=== PATIENT | female | born 1970 | race Caucasian/White ===

== ENCOUNTER → 2016-08-27 | Outpatient (CLI) | payer OTHER ==
[~2016-08-27] MED LIST: EPP3/2 IM; MULT-513 PO; PRO AIR INH
--- NOTE | 2016-08-28 05:53 | PAP/PSG TECHNICIAN REPORT ---
[facility] Portrait Painter Polysomnogram Report Study name: None Report date: 08/28/2016 Study date: 08/27/2016 Referring Physician: Alfredito SLATER M.D. Name: GRETCHEN STROUD Interpreting Physician: Clau Slater M.D. Date of : 1970 Portrait Painter: Lauro Blank RPSGT. Sex: Female Age: 46 StudyType: PSG Weight: 208 lbs 14 inches Height: 46 years, Height 5' 4.4" Neck Circum: BMI: 35.26 Medications: ibuprofen 200 mg, proair hfa 108 90 base, epi-pen Patient History PATIENT HAS HISTORY OF LOUD SNORING, WITNESSED APNEAS, NOCTURIA AND HEADACHES. SHE ALSO HAS HISTORY OF DROWSY DRIVING. SHE IS HERE TODAY FOR AN EVALUATION OF SHEILA. ESS = 21 RM 8 Parameters Monitored NPSG: E1-M2, E2-M1, Fp1-M2, Fp2-M1, F3-M2, F4-M2, F4-M1, C3-M2, C4-M2, C4-M1, O1-M2, O2-M2, O2-M1, T3-M2, T4-M1, P3-M2, P4-M1, CHIN1, CHIN2, HR, EKG, Legs, PFLOW, SNOR, FLOW, CFLOW, Tidal Volume, THOR, ABDO, SpO2, PLTH, CPRESS, ETCO2 Wave, ETCO2, pH Sleep Architecture Sleep Stages Time at Lights Off 10:25:08 PM STAGES Time (min.) TST (%) Time at Lights On 5:32:08 AM Wake 67.5 -- Total Recording Time (TRT) 427.50 min. N1 12.5 3 Total Sleep Period (TSP) 396.0 min. N2 190.5 53 Total Sleep Time (TST) 359.5min. N3 60.5 17 Awake Time 68.0 min. REM 96.0 27 Wake after Sleep Onset 39.0 min. Sleep Efficiency (SE) 84 % Sleep Onset Latency (DAMARI) 28.5 min. Number of Stage 1 Shifts None Awakenings 16 Stage Changes 55 Number of REM periods 3 REM 96.0 27 REM Latency 166.0 min. NREM 263.5 73 Body Position Analysis Supine Right Left Side Prone Vertical Total Sleep Time (min.) 34.3 165.6 192.0 357.55 0.0 0.0 Total Sleep Time (%) 1% 46% 53% 99 0% N/A% Total Sleep Time REM (min.) 0.0 35.0 61.0 None 0.0 0.0 Total Sleep Time NREM (min.) 1.9 130.6 131.0 None 0.0 0.0 Intermittent Wake (min.) 32.3 19.6 15.6 None 0.0 0.0 Total Sleep Period (%) 3% None None None None None Arousals Myoclonus (PLM) * Events Count Index Events Count Index Spontaneous 11 2 Events Awake (PLMW) 44 39.1 Respiratory 2 0.3 Events Asleep w/ Arousal (PLMA) 1 0.2 PLM 1 0 Events Asleep w/o Arousal (PLMS) 1 0.2 Snoring 1 0 Total Asleep 2 0.3 Total 15 3 Total 46 6 Respiratory Analysis * CA OA MA CH H RERA Total Count 0 5 0 0 30 1 35 Index 0.0 0.8 0.0 0 5.0 0 6.0 Mean Duration 0.0 12.8 0.0 0.00 19.8 19.3 18.8 Longest Duration 0.0 15.8 0.0 0.00 0.0 19.3 35.4 Respiratory Event Summary Total Supine ~Supine Right Left Prone REM NREM Apneas Count 5 0 5 3 2 N/A 5 0 Index 0.8 0 1 1.1 0.6 N/A 3 0 Hypopneas (4% Desat) Count 30 0 30 12 18 N/A 27 3 Index 5.0 0.0 5 4.3 5.6 N/A 16.9 0.7 Apneas & All Hypopneas Count 35 0 35 15 20 N/A 32 3 Index 5.8 0 6 5 6 N/A 20.0 0.7 Respiratory Events ([employer] Programmer+All Hyp+RERA) Count 35 0 36 16 20 N/A 32 3 Index 6.0 0 6 5.8 6.3 N/A 20.6 0.7 Respiratory Related Arousal Count 2 0 2 1 1 N/A 1 1 Index 0.3 0 0 0 0 N/A 1 0 Snoring Analysis Supine Right Left Prone REM NREM Total Snore duration 30.4 min Snores count 1 579 609 N/A 471 718 1,189 Snore mean duration 1.5 Sec Snores index 31 210 190 N/A 294.4 163.5 198.4 TST with snoring (%) 8.5% Desaturation Event Summary: Minimum %SpO2 Event Count Mean/Min/Max Duration(sec.) Desaturation Index % Time In Bed > 90 33 29.8 / 8.8 / 60.0 4.7 98.0 86 - 90 0 N/A 0.0 2.0 81 - 85 0 N/A 0.0 0.1 76 - 80 0 N/A 0.0 0.0 71 - 75 0 N/A 0.0 0.0 66 - 70 0 N/A 0.0 0.0 61 - 65 0 N/A 0.0 0.0 56 - 60 0 N/A 0.0 0.0 51 - 55 0 N/A 0.0 0.0 < 50 0 N/A 0.0 0.0 Total REM NREM Awake <50% 0.0 min. 0.0 min. 0.0 min. 0.0 min. 51 - 60% 0.0 min. 0.0 min. 0.0 min. 0.0 min. 61 - 70% 0.0 min. 0.0 min. 0.0 min. 0.0 min. 71 - 80% 0.0 min. 0.0 min. 0.0 min. 0.0 min. 81 - 90% 8.7 min. 6.7 min. 1.5 min. 0.5 min. 91 - 100% 418.1 min. 89.3 min. 262.0 min. 66.8 min. Average 93 93 93 94 Minimum SpO2 84 84 89 90 Desaturation Event Index 4.6 18.1 0.7 0.9 # Desat. Events below 89% 7 7 N/A N/A Time(%) with Saturation below 89% 0.3 0.3 0.0 0.0 Time(min.) with Saturation below 89% 1.5 1.5 0.0 0.0 Time (mins) REM (mins) NREM (mins) % of TST SpO2 Below 90% 20 18 N2 0.9 SpO2 Below 88% 3 0 0 0 Heart Rate Analysis Min (bpm) Max (bpm) Average (bpm) Awake 56 127 70 NREM 55 89 65 REM 54 92 69 Overall 54 92 66 Supplemental O2 Values Minimum O2 level: None Value Start Time End Time Portrait Painter Comments Ms. Stroud slept in the right, left and supine positions. PAC's noted. Leg movements noted. No bruxism noted. Snoring was noted and scored as a 4 on a scale of 1 through 5. (0=no snoring, 5=snoring loud enough to be heard through a closed door or down the horan way) Ms. Stroud awoke to use the restroom 0 times during the night. Ms. Stroud stated I slept as well as I do when I am in my own bed. The final report will be interpreted and signed by a sleep physician. The completed physician report will then be placed in the patient medical record. Therapy (cm H2O) 0 TIB (min.) 427.0 TST (min.) 359.5 Sleep Onset (min.) 28.5 REM Onset From Sleep (min.) 166.0 Sleep Efficiency % 84 Wakefulness (%) 16 Wakefulness (min.) 68.0 NREM 1 (%) 3 NREM 1 (min.) 12.5 NREM 2 (%) 53 NREM 2 (min.) 190.5 NREM 3 (%) 17 NREM 3 (min.) 60.5 REM (%) 27 REM (min.) 96.0 # Arousals 15 Arousal Index 3 # Snore 1,189 Snore Index 198.4 AHI 5.8 AHI Supine 0 AHI Non-Supine 6 NREM AHI 0.7 REM AHI 20.0 RDI 6.0 # Obstructive Apnea 5 # Central Apnea 0 # Mixed Apnea 0 # Hypopneas 30 RERAs 1 Total Respiratory Events 36 Time Below SpO2 89% (min.) 1.5 Mean NREM SpO2 (%) 93 Mean REM SpO2 (%) 93 Mean Sleep SpO2 (%) 93 Min NREM SpO2 (%) 89 Min REM SpO2 (%) 84 Position Supine (min.) 34.3 Position Non-supine (min.) 357.6 LM Index Sleep 0.3 LM Index NREM 0.5 LM Index REM 0.0 Mean Heart Rate (bpm) 66 Min Heart Rate (bpm) 54
--- NOTE | 2016-09-07 15:58 | POLYSOMNOGRAPH REPORT ---
REFERRING PERSON: Dr. Clau Slater. SENIOR ACCOUNTANT: Lauro Blank. Ms. Moreno is a 46-year-old female with a history of loud snoring, witnessed apneas, nocturia and headache. She does admit to drowsy driving. She is here to rule out sleep disorder breathing. Her [place] Sleepiness Scale Score on the evening of this study is 21, BMI is 35.26. Following the technical and digital specifications of the [place] [employer] (AASM) a standard diagnostic polysomnogram was performed monitoring EEG, EOG, EMG (chin and leg deviations), oxygen saturation, body position, digital video, respiratory effort and airflow. The sleep Stage and event scoring was based on the AASM Manual for the Scoring of Sleep and Associated Events 2007 edition. Apneas are defined as a drop in the peak thermal sensor excursion by >90% of baseline for at least 10 seconds. Hypopneas were scored using the 4% oxygen desaturation rule (4A-[employer]ic[employer]) and a decrease in the nasal pressure excursions by >30% of baseline for at least 10 seconds. Respiratory effort-related arousal (RERA's) is defined as a sequence of breaths lasting at least 10 seconds characterized by increasing respiratory effort or flattening of the nasal pressure waveform leading to an arousal from sleep when the sequence of breaths does not meet criteria for an apnea or hypopnea. Apnea Hypopnea index (AHI) is defined as the number of apneas and hypopneas occurring in an hour of sleep. Respiratory disturbance index (RDI) is defined as the number of apneas, hypopneas, and RERA's occurring in an hour of sleep. Ms. Moreno's total sleep period time was 396 minutes. Total sleep time was 359.5 minutes. Sleep efficiency was 84%. Latency to sleep onset was 28.5 minutes with wake after sleep onset at 39 minutes. Total non-REM sleep time was 263.5 minutes. He spent 3% of that time in N1 sleep, 53% in N2 sleep and 17% in N3 sleep. REM latency was 166 minutes. Total REM sleep time was 96 minutes or 27% of total sleep time. There were 15 cortical arousals from sleep. Eleven of these arousals were spontaneous, 2 were due to respiratory events, 1 due to periodic limb movements of sleep and 1 was due to snoring. There were 2 periodic limb movements noted on this test. Limb movement index was 0.3. Limb movement with arousal index was 0.2. There were 5 obstructive apneas, no central or mixed apneas and 30 hypopnea noted on this test. Apnea-hypopnea index was 5.8 consistent with mild sleep apnea. REM AHI was 20. 1,189 snoring events were recorded. Total sleep time with snoring was 8.5%. Mean saturation was 93% with desaturations to 84%. Saturations were less than 89% for 1.5 minutes of recording time. There were some premature atrial complexes noted on EKG monitoring. Heart rates ranged from a low of 54 beats per minute to a high of 92 beats per minute. IMPRESSION AND PLAN: A 46-year-old female with evidence of mild sleep apnea without nocturnal hypoxemia on this sleep study. Overall, AHI was 5.8 with a REM AHI of 20. 1. This patient may benefit from positive airway pressure therapy. She should return to sleep lab for a full night titration and then based on those results be started on equipment at home. A download from her machine can be reviewed in 1 month both to check compliance as well as AHI and further pressure adjustments can occur at that time. 2. Alternatively, this patient could be started on auto titrating CPAP with pressures of 5-15 cm. A download reviewed 1 month after starting therapy and then this patient could be set to optimal pressure based on that data. 3. Should this patient be unwilling or unable to tolerate CPAP therapy, she may be referred to ear, nose and throat or oral surgery/dental medicine (if appropriate) to discuss alternative treatments for sleep disordered breathing.
== END | disposition home or self-care (01) ==
LOC: C.NEUR 21:00
PROVIDERS: ATTEND Family Medicine
DX: G47.10 Hypersomnia, unspecified (principal); R06.83 Snoring

== ENCOUNTER 2017-04-25 10:31 | Emergency (ER) | payer OTHER ==
[~2017-04-25] VITALS: Ht 160 cm; Wt 97.1 kg
[2017-04-25 10:42] VITALS: TEMP 36.6; Ht 160 cm; Wt 97.1 kg
[2017-04-25] MEDS ORDERED: ALBU18002 INH (11:18)
[2017-04-25] MEDS ORDERED: MONT1TAB3 PO (11:18)
[2017-04-25] MEDS ORDERED: ASPI-391 PO (11:18)
[2017-04-25 11:40] LABS: HEMATOCRIT 41.2 % (37-47); MEAN CELL VOLUME 87.5 fL (80-100); MEAN CORPUSCULAR HEMOGLOBIN 30.8 pg (25-34); MEAN CORPUSCULAR HGB CONC 35.2 g/dl (32-36); PLATELET COUNT 376 K/uL (130-400); RED BLOOD COUNT 4.71 M/uL (4.2-5.4); WHITE BLOOD COUNT 9.08 K/uL (4.8-10.8)
[2017-04-25] MEDS ORDERED: CIPROFLOXACIN 400MG / 200ML D5W IV STA (11:43)
[2017-04-25 11:48] LABS: URINE APPEARANCE CLEAR (CLEAR); URINE BILIRUBIN NEG (NEG); URINE COLOR YELLOW; URINE EPITHELIAL CELL AUTO >30 /lpf (0-5); URINE NITRITE NEG (NEG); URINE PH 6.5 (4.5-7.5); URINE SPECIFIC GRAVITY 1.013 (1.000-1.030); UROBILINOGEN NEG (NEG); ZZUR CULT IF INDIC CLEAN CATCH YES
[2017-04-25 11:48] LABS: BUN/CREATININE RATIO 13.6 (10-20); CALCIUM 9.6 mg/dl (8.5-10.1); CREATININE 0.89 mg/dl (0.60-1.20); POTASSIUM 3.6 mmol/L (3.5-5.1)
[2017-04-25 11:58] LABS: MANUAL MICROSCOPIC REQUIRED? NO; REVIEW REQ? YES
[2017-04-25] MEDS ORDERED: CEFTRIAXONE SOD INJ 1 GM ADDVIAL IV STA (12:00)
[2017-04-25] MEDS ORDERED: LOSARTAN POTASSIUM 50 MG TAB PO STA (12:25)
[2017-04-25 12:28] LABS: ALKALINE PHOSPHATASE 87 U/L (45-117); ALT/SGPT 42 U/L (12-78); AST/SGOT 21 U/L (15-37)
--- NOTE | 2017-04-25 12:35 | DIAGNOSTIC IMAGING REPORT ---
HEAD WITHOUT CONTRAST (CT) CLINICAL HISTORY: 46 years-old Female presenting with [place] eval for bleed. TECHNIQUE: Multidetector CT imaging of the head was performed without the use of intravenous contrast. IV contrast: None. A dose lowering technique was used consistent with the principles of ALARA (as low as reasonably achievable). COMPARISON: None. CT DOSE (mGy.cm): The estimated cumulative dose is 2200.[address] abdomen and pelvis. FINDINGS: Saw Filer topogram: Unremarkable. Ventricles and sulci normal in size. Brain parenchyma normal in appearance with preserved glover-white differentiation. No mass effect or midline shift. No hemorrhage or acute territorial infarct. No extra-axial fluid collection. Paranasal sinuses and mastoid air cells clear. Calvarium intact. Postsurgical changes of the left globe. IMPRESSION: 1. No acute intracranial abnormality. Electronically signed by: Royer Barber M.D. 04/25/2017 12:34 PM Dictated Date/Time: 04/25/2017 12:32 PM
--- NOTE | 2017-04-25 12:45 | DIAGNOSTIC IMAGING REPORT ---
ABD/PELVIS WITHOUT FOR STONE CLINICAL HISTORY: 46 years-old Female presenting with flank pain eval for stone. TECHNIQUE: Multidetector CT of the abdomen and pelvis was performed without the use of intravenous contrast. IV contrast: None. A dose lowering technique was used consistent with the principles of ALARA (as low as reasonably achievable). COMPARISON: 04/10/2016. CT DOSE (mGy.cm): The estimated cumulative dose is 2200.07 mGy.cm. FINDINGS: Identification Printing Machine Setter topogram: Cholecystectomy clips. Lung bases: Minimal dependent changes likely atelectasis. Few pulmonary cyst noted at the lung bases. Mild mosaic attenuation. Heart top normal in size. No pericardial or pleural effusion. Liver: Normal morphology. Normal density. Biliary: Dilatation of the presumed cystic duct remnant with a 8 mm calculus at the junction of the cystic duct with the common hepatic duct. This appearance is unchanged from the prior exam though previously noted additional hyperdensities have cleared from the cystic duct remnant. Gallbladder surgically absent. Pancreas: Mild parenchymal atrophy. Spleen: Normal noncontrast appearance. Few small splenule is noted. Adrenal glands: Normal noncontrast appearance. Kidneys and ureters: Two exophytic soft tissue density lesions noted in the right kidney, incompletely characterized and the absence of intravenous contrast. No nephrolithiasis. No hydronephrosis. Normal ureters. Bladder: Mild circumferential bladder wall thickening allowing for underdistention. Pelvic organs: Uterus and ovaries normal. Nabothian cyst suggested in the cervix. Dominant follicle suggested in the right ovary. Evaluation limited bilateral contrast. Bowel: Normal appendix. No bowel obstruction. Diverticulosis of the proximal sigmoid colon. Peritoneal cavity: No free fluid or intraperitoneal gas. Lymph nodes: No gross lymphadenopathy allowing for noncontrast technique. Vasculature: Normal noncontrast appearance. Abdominal wall: Small fat-containing umbilical hernia. Musculoskeletal: Degenerative changes of the pubic symphysis. Few sclerotic lesions in the pelvis likely bone islands. Degenerative changes of the lower lumbar spine. IMPRESSION: 1. Circumferential bladder wall thickening could represent cystitis. Correlate with urinalysis. No hydronephrosis or nephrolithiasis. 2. Unchanged appearance of the 8 mm calculus presumably in the cystic duct remnant. No intrahepatic biliary ductal dilatation. 3. Indeterminate soft tissue density lesions in the right kidney. These could represent hemorrhagic or proteinaceous cysts although underlying soft tissue neoplasm cannot be excluded in the absence of intravenous contrast. Dedicated contrast enhanced CT or MR of the kidneys on a nonurgent basis to be considered as clinically indicated. 4. Diverticulosis. Electronically signed by: Royer Barber M.D. 04/25/2017 12:44 PM Dictated Date/Time: 04/25/2017 12:36 PM
[2017-04-25] MEDS ORDERED: SULF800T23 PO (13:04)
[2017-04-25 13:30] VITALS: BP 139/90; PULSE 58; O2SAT 98
--- NOTE | 2017-04-25 15:49 | EMERGENCY ROOM VISIT NOTE ---
History Report prepared by Daniel: Yumiko Garcia Under the Supervision of: Dr. Maximiliano Chris M.D. First contact with patient: 11:35 Chief Complaint: URINARY SYMPTOMS Stated Complaint: KIDNEY PAIN,HEADACHE,BODYACHES,FEVER Nursing Triage Summary: see triage Urinary symptoms since yesterday. History of Present Illness The patient is a 46 year old female who presents to the Emergency Room with complaints of persistent kidney pain starting 2200 last night. She describes the pain as a dull ache. It is worse on the left side. It does not radiate to the front. The pain worsens with urination. The patient was sent over from [place]. Her blood pressure was found to be high there. She notes that she has had borderline hypertension and was given a diuretic. She has not taken the diuretic as it was making her lightheaded. The patient started having urinary frequency and burning yesterday morning. Last night she started having fever and chills. Her temperature was 102.5 last night. She was unable to sleep well last night due to the pain. She notes a history of kidney infections. She has been waking up with headaches for the past month. She had a migraine today for which she took some migraine medication. She has had loose stools, but no diarrhea. She has had a mild cold recently. She denies any vomiting or chest pain. She denies any history of kidney stones. Source of History: patient Onset: 2199 last night Position: other (kidney) Quality: ache, dull Timing: other (persistent) Modifying Factors (Worsening): urination Associated Symptoms: + fevers, + chills, + headache, + urinary symptoms, No chest pain, No vomiting, No diarrhea Note: Pt reports loose stools, high blood pressure. Review of Systems See HPI for pertinent positives & negatives. A total of 10 systems reviewed and were otherwise negative. Past Medical & Surgical Medical Problems: (1) Abdominal pain (2) Asthma (3) Bronchitis (4) Dental cavity (5) Kidney infection (6) Migraine (7) Pneumonia (8) S/P cholecystectomy (9) UTI (urinary tract infection) Social History Problems: (1) Post-operative state Family History Diabetes mellitus FHx: gallbladder disease Heart disease Hypertension Kidney disease Kidney stones Seizures Social History Smoking Status: Never Smoker Alcohol Use: occasionally Drug Use: none Housing Status: lives with family Occupation Status: unemployed Current/Historical Medications Scheduled Epinephrine (Epipen), 0.3 MG IM UD Montelukast Sodium (Singulair), 10 MG PO DAILY Multivitamins/Minerals (Mvi With Minerals), 1 TAB PO QAM Sulfa/Trimethoprim (Bactrim Ds 800MG/160MG), 1 TAB PO BID Scheduled PRN Albuterol Sulfate (Proair Respiclick), 1 PUFF INH DAILY PRN for SOB/Wheezing Nmlfwqh-Mclwdhsloagqq-Dkxwojpk (Excedrin Extra Strength), 1 TAB PO Q4H PRN for Headache or Pain Allergies Coded Allergies: BEE STING (Unverified Allergy, Severe, ANAPHYLAXIS, 04/25/17) Wheat (Unverified Allergy, Intermediate, gi upset, 04/25/17) Latex1 -Allergic Contact Dermititis (Unverified Allergy, Mild, RASH, 04/25) PER PATIENT Cashew (Unverified Allergy, Unknown, throat closes, 04/25/17) [place] (Unverified Allergy, Unknown, throat closes, 04/25/17) Pistachio (Unverified Allergy, Unknown, throat closes, 04/25/17) Uncoded Allergies: UNKNOWN ANTIBIOTIC (Allergy, Unknown, hives & trouble breathing, 03/26/16) Physical Exam Vital Signs Date Time Temp Pulse Resp B/P (MAP) Pulse Ox O2 Delivery O2 Flow Rate FiO2 04/25/17 13:30 58 16 139/90 98 Room Air 04/25/17 12:40 57 20 148/79 99 Room Air 04/25/17 10:42 36.6 58 17 192/130 98 Room Air Physical Exam Constitutional: Vital signs reviewed. Eyes: Pupils are equal round reactive to light. Conjunctiva are noninjected. ENT: Pharynx is clear without erythema or exudate. Mucous membranes are moist. Neck supple without meningeal signs. Respiratory: Clear to auscultation bilaterally. Breath sounds are equal bilaterally. Cardiovascular: Regular rate and rhythm. No rubs or gallops. GI: Soft, nondistended. Suprapubic tenderness. No guarding. Bowel sounds are present. Musculoskeletal: No peripheral edema. Left CVA tenderness. Integumentary: No cyanosis. Neurological: The patient is awake and alert. No focal deficits. Psychiatric: Normal affect. Medical Decision & Procedures ER Provider Diagnostic Interpretation: Radiology results as stated below per my review and the radiologist's interpretation: HEAD WITHOUT CONTRAST (CT) CLINICAL HISTORY: 46 years-old Female presenting with [place] eval for bleed. TECHNIQUE: Multidetector CT imaging of the head was performed without the use of intravenous contrast. IV contrast: None. A dose lowering technique was used consistent with the principles of ALARA (as low as reasonably achievable). COMPARISON: None. CT DOSE (mGy.cm): The estimated cumulative dose is 2200.[address] abdomen and pelvis. FINDINGS: [facility] topogram: Unremarkable. Ventricles and sulci normal in size. Brain parenchyma normal in appearance with preserved glover-white differentiation. No mass effect or midline shift. No hemorrhage or acute territorial infarct. No extra-axial fluid collection. Paranasal sinuses and mastoid air cells clear. Calvarium intact. Postsurgical changes of the left globe. IMPRESSION: 1. No acute intracranial abnormality. Electronically signed by: Royer Barber M.D. 04/25/2017 12:34 PM Dictated Date/Time: 04/25/2017 12:32 PM ABD/PELVIS WITHOUT FOR STONE CLINICAL HISTORY: 46 years-old Female presenting with flank pain eval for stone. TECHNIQUE: Multidetector CT of the abdomen and pelvis was performed without the use of intravenous contrast. IV contrast: None. A dose lowering technique was used consistent with the principles of ALARA (as low as reasonably achievable). COMPARISON: 04/10/2016. CT DOSE (mGy.cm): The estimated cumulative dose is 2200.07 mGy.cm. FINDINGS: [facility] topogram: Cholecystectomy clips. Lung bases: Minimal dependent changes likely atelectasis. Few pulmonary cyst noted at the lung bases. Mild mosaic attenuation. Heart top normal in size. No pericardial or pleural effusion. Liver: Normal morphology. Normal density. Biliary: Dilatation of the presumed cystic duct remnant with a 8 mm calculus at the junction of the cystic duct with the common hepatic duct. This appearance is unchanged from the prior exam though previously noted additional hyperdensities have cleared from the cystic duct remnant. Gallbladder surgically absent. Pancreas: Mild parenchymal atrophy. Spleen: Normal noncontrast appearance. Few small splenule is noted. Adrenal glands: Normal noncontrast appearance. Kidneys and ureters: Two exophytic soft tissue density lesions noted in the right kidney, incompletely characterized and the absence of intravenous contrast. No nephrolithiasis. No hydronephrosis. Normal ureters. Bladder: Mild circumferential bladder wall thickening allowing for underdistention. Pelvic organs: Uterus and ovaries normal. Nabothian cyst suggested in the cervix. Dominant follicle suggested in the right ovary. Evaluation limited bilateral contrast. Bowel: Normal appendix. No bowel obstruction. Diverticulosis of the proximal sigmoid colon. Peritoneal cavity: No free fluid or intraperitoneal gas. Lymph nodes: No gross lymphadenopathy allowing for noncontrast technique. Vasculature: Normal noncontrast appearance. Abdominal wall: Small fat-containing umbilical hernia. Musculoskeletal: Degenerative changes of the pubic symphysis. Few sclerotic lesions in the pelvis likely bone islands. Degenerative changes of the lower lumbar spine. IMPRESSION: 1. Circumferential bladder wall thickening could represent cystitis. Correlate with urinalysis. No hydronephrosis or nephrolithiasis. 2. Unchanged appearance of the 8 mm calculus presumably in the cystic duct remnant. No intrahepatic biliary ductal dilatation. 3. Indeterminate soft tissue density lesions in the right kidney. These could represent hemorrhagic or proteinaceous cysts although underlying soft tissue neoplasm cannot be excluded in the absence of intravenous contrast. Dedicated contrast enhanced CT or MR of the kidneys on a nonurgent basis to be considered as clinically indicated. 4. Diverticulosis. Electronically signed by: Royer Barber M.D. 04/25/2017 12:44 PM Dictated Date/Time: 04/25/2017 12:36 PM Laboratory Results 04/25/17 11:05 04/25/17 11:05 Test 04/25/17 11:05 04/25/17 11:25 04/25/17 11:32 Red Blood Count 4.71 M/uL (4.2-5.4) Mean Corpuscular Volume 87.5 fL (80-100) Mean Corpuscular Hemoglobin 30.8 pg (25-34) Mean Corpuscular Hemoglobin Concent 35.2 g/dl (32-36) RDW Standard Deviation 43.4 fL (36.4-46.3) RDW Coefficient of Variation 13.6 % (11.5-14.5) Mean Platelet Volume 9.0 fL (7.4-10.4) Anion Gap 4.0 mmol/L (3-11) Est Creatinine Clear Calc Drug Dose 86.7 ml/min Estimated GFR () 89.5 Estimated GFR (Non- 77.2 BUN/Creatinine Ratio 13.6 (10-20) Calcium Level 9.6 mg/dl (8.5-10.1) Total Bilirubin 0.4 mg/dl (0.2-1) Direct Bilirubin < 0.1 mg/dl (0-0.2) Aspartate Amino Transf (AST/SGOT) 21 U/L (15-37) Alanine Aminotransferase (ALT/SGPT) 42 U/L (12-78) Alkaline Phosphatase 87 U/L (45-117) Total Protein 8.0 gm/dl (6.4-8.2) Albumin 4.0 gm/dl (3.4-5.0) Lipase 112 U/L (73-393) Urine Color YELLOW Urine Appearance CLEAR (CLEAR) Urine pH 6.5 (4.5-7.5) Urine Specific [place] 1.013 (1.000-1.030) Urine Protein NEG (NEG) Urine Glucose (UA) NEG (NEG) Urine Ketones NEG (NEG) Urine Occult Blood 1+ (NEG) Urine Nitrite NEG (NEG) Urine Bilirubin NEG (NEG) Urine Urobilinogen NEG (NEG) Urine Leukocyte Esterase LARGE (NEG) Urine WBC (Auto) >30 /hpf (0-5) Urine RBC (Auto) 0-4 /hpf (0-4) Urine Hyaline Casts (Auto) 0 /lpf (0-5) Urine Epithelial Cells (Auto) >30 /lpf (0-5) Urine Bacteria (Auto) 1+ (NEG) Urine Renal Epithelial Cells 0-5 /lpf (0-5) Bedside Urine Test NEG (NEG) Laboratory results as reviewed by me. Medications Administered Medications (Trade) Dose Ordered Sig/Neil Route Start Time Stop Time Status Last Admin Dose Admin Ceftriaxone Sodium (Rocephin Inj) 1 gm NOW STAT IV 04/25/17 12:00 04/25/17 12:01 DC 04/25/17 12:42 1 GM ED Course 1137: The patient was evaluated in room C3. A complete history and physical exam was performed. 1143: Ordered Ciprofloxacin/Dextrose 400 mg IV. 1158: I reevaluated the patient. She informed me that her heat plant specialist told her there is a risk for retinal detachment with certain antibiotics. 1200: Ordered Rocephin Inj 1 gm IV. 1225: Ordered Losartan Potassium 50 mg PO. 1243: The patient's blood pressure came down spontaneously. The losartan will be put on hold. 1258: Upon reevaluation, the patient was resting comfortably. I discussed tonfrankie's findings with her. She verbalized agreement of the treatment plan. She was discharged home. Medical Decision This is a 46-year-old female who presents with flank pain, urinary symptoms, fever and a month of headaches. Differential diagnosis includes UTI, pyelonephritis, kidney stone, migraine headache, intracranial mass, intracranial bleed. I did perform a limited focused review of portions of the patient's old chart on the electronic medical record. The patient has had no recent pertinent visits to this hospital. I did evaluate the patient as noted above. Patient is presenting with flank pain with urinary symptoms. She had fever last night as well. She does have left CVA tenderness. Her symptoms seem consistent with a pyelonephritis. She also was sent here because her blood pressure was extremely high. She does state that she has had headaches for about a month. IV access was established. I did order and personally review the patient's urinalysis as described above. Urine process test was negative. Urine culture was sent. She was treated with IV ceftriaxone. I did order and review the patient's blood work as noted in the electronic medical record. Her white blood cell count is not elevated. I did order a CT of the head. I did review the images myself as well as the radiology report as described above. I did reassess the patient. I did discuss the test results with the patient. I initially was given to treat the patient's blood pressure but it came down spontaneously. It is still elevated but not significantly so and she was advised to have her rechecked by her doctor. The patient does not require hospitalization at this time. She was discharged with a prescription for 10 days of Bactrim. She was given return instructions as outlined below. Medication Reconcilliation Current Medication List: was personally reviewed by me Blood Pressure Screening Patient's blood pressure: Elevated blood pressure Blood pressure disposition: Referred to PCP Impression Primary Impression: Pyelonephritis Additional Impressions: Headache Elevated blood pressure reading Scribe Attestation The scribe's documentation has been prepared under my direct and personally reviewed by me in its entirety. I confirm that the note above accurately reflects all work, treatment, procedures, and medical decision making performed by me. Departure Information Dispostion Home / Self-Care Prescriptions Sulfa/Trimethoprim (Bactrim Ds 800MG/160MG) Tab 1 TAB PO BID for 10 Days, #20 TAB Prov: Maximiliano Chris M.D. 04/25/17 Referrals Taylor SWAIN M.D. (PCP) Forms HOME CARE DOCUMENTATION FORM, IMPORTANT VISIT INFORMATION Patient Instructions ED Hypertension Poss, Headache Pain, [facility], [facility], Pyelonephritis Dc Additional Instructions You have been examined and treated today on an emergency basis only. This is not a substitute for, or an effort to provide, complete comprehensive medical care. It is impossible to recognize and treat all injuries or illnesses in a single emergency department visit. It is therefore important that you follow up closely with your physician. Call as soon as possible for an appointment. Return for worsening symptoms or if you develop fever, vomiting, or any other concerning symptoms. Problem Qualifiers Additional Impressions: Headache Headache type: unspecified Headache chronicity pattern: chronic headache Intractability: not intractable Qualified Codes: R51 - Headache
--- NOTE | 2017-04-27 11:16 | Pharmacy Progress Note ---
ED Pharmacist Culture FollowUp Date of Service: Apr 27, 2017. Patient was sent home with a prescription for bactrim, which should cover the E. Coli growing from the patient's urine culture.
== END 2017-04-25 13:37 | disposition home or self-care (01) ==
LOC: C.EDB 10:32 → C.EDC 13:37
DX: N12 Tubulo-interstitial nephritis, not specified as acute or chronic (principal); R51 Headache; R03.0 Elevated blood-pressure reading, without diagnosis of hypertension; J45.909 Unspecified asthma, uncomplicated; Z90.49 Acquired absence of other specified parts of digestive tract; Z87.440 Personal history of urinary (tract) infections; Z79.899 Other long term (current) drug therapy; Z91.030 Bee allergy status; Z91.040 Latex allergy status; Z91.018 Allergy to other foods; Z83.3 Family history of diabetes mellitus; Z83.79 Family history of other diseases of the digestive system; Z82.49 Family history of ischemic heart disease and other diseases of the circulatory system; Z84.1 Family history of disorders of kidney and ureter; Z82.0 Family history of epilepsy and other diseases of the nervous system

== ENCOUNTER 2021-05-08 22:51 | Inpatient (IN) ==
[2021-05-08 23:19] LABS: Appearance Urine Turbid (Clear); Bacteria Urine Automated Negative (Negative); Bilirubin Urine Negative (Negative); Blood Urine 1+ (Negative); Color Urine Yellow; Glucose Urine UA Negative (Negative); Ketones Urine Negative (Negative); Leukocyte Esterase Urine Negative (Negative); Nitrite Urine Negative (Negative); Protein Urine Negative (Negative); Specific Gravity Urine 1.018 (1.000-1.030); Urobilinogen Urine Negative (Negative); WBC Urine Automated 0 /hpf (0-5)
[2021-05-09 00:27] LABS: Basophils # (auto) 0.02 K/uL (0-0.2); Basophils % (auto) 0.2 %; Eosinophils # (auto) 0.13 K/uL (0-0.5); Eosinophils % (auto) 1.6 %; Hematocrit (blood only) 42.1 % (37-47); Hemoglobin 14.4 g/dL (12.0-16.0); Immature Granulocytes # (auto) 0.02 K/uL (0.00-0.02); Immature Granulocytes % (auto) 0.2 %; Lymphocytes # (auto) 1.82 K/uL (1.2-3.4); Mean Corpuscular Hemoglobin 30.1 pg (25-34); Mean Corpuscular Hgb Conc 34.2 g/dL (32-36); Mean Corpuscular Volume 87.9 fL (80-100); Mean Platelet Volume 10.2 fL (7.4-10.4); Monocytes % (auto) 9.7 %; Neutrophils % (auto) 66.3 %; Platelet Count 328 K/uL (130-400); RDW Coefficient of Variation 13.5 % (11.5-14.5); RDW Standard Deviation 43.9 fL (36.4-46.3); Red Blood Count 4.79 M/uL (4.2-5.4); White Blood Count 8.29 K/uL (4.8-10.8)
[2021-05-09 00:44] LABS: BUN Creatinine Ratio 20.9 (10-20); Calcium 9.5 mg/dl (8.5-10.1); Creatinine Clr Calc Pharmacy 83.5 ml/min; Est GFR (African American) 84.7 ml/min; Est GFR (Non-African American) 73.1 ml/min; Potassium 3.6 mmol/L (3.5-5.1)
[2021-05-09 00:47] LABS: Bilirubin,Total 0.8 mg/dl (0.2-1); Globulin 3.9 gm/dl (2.5-4.0); Total Protein 7.9 gm/dl (6.4-8.2)
[2021-05-09] MEDS ORDERED: OPTIRAY 320 100ml IV ONE (01:09)
[2021-05-09] MEDS ORDERED: MoRPHine SULFATE 4 MG/ML 1 ML CARP\\VIAL IV STA (01:48)
[2021-05-09] MEDS ORDERED: SODIUM CHLORIDE 0.9% 1000ML 1,000 ML IV ONE (01:48)
[2021-05-09] MEDS ORDERED: ONDANSETRON INJ 2 MG/ML 2 ML VIAL IV STA (01:48)
[2021-05-09 02:12] LABS: INR 0.9 (0.9-1.1); Partial Thromboplastin Ratio 0.8; Partial Thromboplastin Time 21.2 Seconds (21.0-31.0); Prothrombin Time 9.5 Seconds (9.0-12.0)
--- NOTE | 2021-05-09 02:48 | Emergency Department Note ---
History of Present Illness General Chief complaint: Abdominal Pain Stated complaint: severe stomach pain, nausea, psbly food related? Time Seen by Provider: 05/09/21 01:39 History of Present Illness Maximum Pain Intensity: 5 This 50-year-old who had cholecystectomy presents to the ER complaining of severe right upper quadrant pain Location: Right upper quadrant Quality: Severe Severity: Severe Duration: Today Timing: Today Context: Patient was concerned and came in Modifying factors: better with nothing; worse with activity Patient states she has had a retained stone in the past. Symptoms feel similar. Patient denies chest pain, dyspnea, fevers, vomiting, flulike illness. Home Medications Medication Instructions Recorded Confirmed Type albuterol sulfate 90 mcg/actuation 1 inh INHALATION UD PRN 05/09/21 05/09/21 History aerosol inhaler baclofen 10 mg tablet 10 mg PO AMPM 05/09/21 05/09/21 History cholecalciferol (vitamin D3) 125 125 mcg PO DAILY 05/09/21 05/09/21 History mcg (5,000 unit) tablet (Vitamin D3) epinephrine 0.3 mg/0.3 mL 0.3 mg IM UD PRN 05/09/21 05/09/21 History injection, auto-injector (EpiPen) metoprolol succinate 50 mg 50 mg PO DAILY 05/09/21 05/09/21 History tablet,extended release 24 hr multivitamin (Multiple Vitamins) 1 tab PO DAILY 05/09/21 05/09/21 History Allergies Allergy/AdvReac Type Severity Reaction Status Date / Time bee venom protein (honey bee) Allergy Severe ANAPHYLAXIS Unverified 05/09/21 02:30 wheat Allergy Intermediate gi upset Unverified 05/09/21 02:30 latex Allergy Mild RASH Unverified 05/09/21 02:30 cashew nut Allergy Unknown throat Unverified 05/09/21 02:30 closes marybel Allergy Unknown throat Unverified 05/09/21 02:30 closes pistachio nut Allergy Unknown throat Unverified 05/09/21 02:30 closes UNKNOWN ANTIBIOTIC Allergy Unknown hives & Uncoded 05/09/21 02:30 trouble breathing Past Med/Surg History Medical History Asthma Dental cavity Hypertension Retinal detachment Seasonal allergies Surgical History History of cholecystectomy Social History Smoking Status: Former smoker Preferred Language: Bots[place] Feels Safe at Home: Yes Review of Systems A total of 10 systems reviewed and were otherwise negative Physical Exam Vital Signs Vital Signs - 24 hr 05/08/21 22:56 05/09/21 03:21 Temperature 36.4 C L Temperature Source Temporal Artery Scan Pulse Rate 82 Pulse Rate [Finger] 97 H Pulse Rhythm [Finger] Regular Pulse Strength [Finger] Normal Respiratory Rate 18 16 Respiratory Effort / Characteristics Non-Labored Spontaneous Respiratory Depth Normal Normal Blood Pressure 209/120 H Blood Pressure [Right Arm] 151/101 H Blood Pressure Mean 149 Blood Pressure Mean [Right Arm] 117 Blood Pressure Position [Right Arm] Semi-fowlers Pulse Oximetry 96 97 Oxygen Delivery Method Room Air Room Air Sepsis Recent Fever Within 48 Hours No Sepsis New/Unexplained Change in Mental Status N/A Sepsis Action Taken by Nursing No Action Required VITALS: Vitals are noted on the nurse's note and reviewed by myself. Vital signs hypertensive. GENERAL: Pleasant female who appears in pain, in no acute distress, nondiaphoretic, well-developed well-nourished. SKIN: The skin was without rashes, erythema, edema, or bruising. There is no tenting of the skin. Capillary reflex less than 2 seconds. HEAD: Normocephalic atraumatic. EARS: External auditory canals clear, EYES: Pupils equal round and reactive to light and accommodation. Conjunctivae without injection, sclerae without icterus. Extraocular movements intact. NOSE: Patent, turbinates without inflammation or discharge. MOUTH: Mucous membranes moist. Pharynx without erythema or exudate. Uvula midline. Airway patent. Tongue does not deviate. NECK: Supple without nuchal rigidity. No lymphadenopathy. No thyromegaly. Cervical spine is nontender. No JVD. HEART: Regular rate and rhythm LUNGS: Clear to auscultation bilaterally without wheezes, rales or rhonchi. No retractions or accessory muscle use. ABDOMEN: Positive bowel sounds x 4. Normal tympanic percussion. Soft, tender epigastric right upper quadrant, without masses or organomegaly. No guarding or rebound tenderness. No CVA tenderness MUSCULOSKELETAL: No muscle atrophy, erythema, or edema noted. NEURO: Patient was alert and oriented to person place and time. Normal sensation to light and sharp touch. No focal neurological deficits. Course Administered Medications Discontinued Medications Sodium Chloride (Nss 1000ml) 1,000 mls @ 999 mls/hr IV .Q1H1M ONE Stop: 05/09/21 02:48 Last Infusion: 05/09/21 04:45 Dose: 0 mls/hr Documented by: [id number] Admin: 05/09/21 02:06 Dose: 999 mls/hr Documented by: [id number] Piperacillin Sod/Tazobactam Sod (Zosyn) 4.5 gm in 120 mls @ 240 mls/hr IV NOW ONE Stop: 05/09/21 03:22 Last Infusion: 05/09/21 03:50 Dose: 0 mls/hr Documented by: [id number] Admin: 05/09/21 03:19 Dose: 240 mls/hr Documented by: [id number] Ioversol (Optiray 320 100ml) 90 ml IV ONCE ONE Stop: 05/09/21 01:10 Last Admin: 05/09/21 01:09 Dose: 1 ml Documented by: [id number] Morphine Sulfate (Morphine Sulfate 4 Mg/Ml 1 Ml Carp\Vial) 4 mg IV NOW STA Stop: 05/09/21 01:49 Last Admin: 05/09/21 02:06 Dose: 4 mg Documented by: [id number] Ondansetron HCl (Ondansetron Inj 2 Mg/Ml 2 Ml Vial) 4 mg IV NOW STA Stop: 05/09/21 01:49 Last Admin: 05/09/21 02:06 Dose: 4 mg Documented by: [id number] Medical Decision Making Medical Records Attestation: I reviewed the patient's medical records. Home Medications Current Medication List: was personally reviewed by me Laboratory Data Attestation: I reviewed the patient's lab results. Result diagrams: 05/08/21 23:37 05/08/21 23:37 Lab Results 05/08/21 05/08/21 05/08/21 Range/Units 23:08 23:37 23:37 WBC 8.29 (4.8-10.8) K/uL RBC 4.79 (4.2-5.4) M/uL Hgb 14.4 (12.0-16.0) g/dL Hct 42.1 (37-47) % MCV 87.9 (80-100) fL MCH 30.1 (25-34) pg MCHC 34.2 (32-36) g/dL RDW Std Deviation 43.9 (36.4-46.3) fL RDW Coeff of Dereck 13.5 (11.5-14.5) % Plt Count 328 (130-400) K/uL MPV 10.2 (7.4-10.4) fL Immature Gran % (Auto) 0.2 % Neut % (Auto) 66.3 % Lymph % (Auto) 22.0 % [place] % (Auto) 9.7 % Eos % (Auto) 1.6 % Baso % (Auto) 0.2 % Neut # (Auto) 5.50 (1.4-6.5) K/uL Lymph # (Auto) 1.82 (1.2-3.4) K/uL [place] # (Auto) 0.80 H (0.11-0.59) K/uL Eos # (Auto) 0.13 (0-0.5) K/uL Baso # (Auto) 0.02 (0-0.2) K/uL Immature Gran # (Auto) 0.02 (0.00-0.02) K/uL PT (9.0-12.0) Seconds INR (0.9-1.1) APTT (21.0-31.0) Seconds PTT Ratio Sodium 134 L (136-145) mmol/L Potassium 3.6 (3.5-5.1) mmol/L Chloride 103 (98-107) mmol/L Carbon Dioxide 25 (21-32) mmol/L Anion Gap 6.0 (3-11) BUN 19 H (7-18) mg/dl Creatinine 0.91 (0.6-1.2) mg/dl Est Cr Clr Drug Dosing 83.5 ml/min Est GFR ( Amer) 84.7 ml/min Est GFR (Non-Af Amer) 73.1 ml/min BUN/Creatinine Ratio 20.9 H (10-20) Glucose 128 H (70-99) mg/dl Calcium 9.5 (8.5-10.1) mg/dl Total Bilirubin 0.8 (0.2-1) mg/dl AST 738 H (15-37) U/L ALT 514 H (12-78) Alkaline Phosphatase 128 H (45-117) U/L Total Protein 7.9 (6.4-8.2) gm/dl Albumin 4.0 (3.4-5.0) gm/dl Globulin 3.9 (2.5-4.0) gm/dl Albumin/Globulin Ratio 1.0 (0.9-2) Amylase 54 (25-115) U/L Lipase 129 (73-393) U/L Urine Color Yellow Urine Appearance Turbid A (Clear) Urine pH 8.0 H (4.5-7.5) Ur Specific [place] 1.018 (1.000-1.030) Urine Protein Negative (Negative) Urine Glucose (UA) Negative (Negative) Urine Ketones Negative (Negative) Urine Blood 1+ H (Negative) Urine Nitrite Negative (Negative) Urine Bilirubin Negative (Negative) Urine Urobilinogen Negative (Negative) Ur Leukocyte Esterase Negative (Negative) Urine WBC (Auto) 0 (0-5) /hpf Urine RBC (Auto) 10-30 H (0-4) /hpf U Hyaline Cast (Auto) 1-5 (0-5) /lpf U Epithel Cells (Auto) 5-10 H (0-5) /lpf Urine Bacteria (Auto) Negative (Negative) SARS-CoV-2, RNA, NAAT (NEGATIVE) 05/08/21 05/09/21 Range/Units 23:37 03:20 WBC (4.8-10.8) K/uL RBC (4.2-5.4) M/uL Hgb (12.0-16.0) g/dL Hct (37-47) % MCV (80-100) fL MCH (25-34) pg MCHC (32-36) g/dL RDW Std Deviation (36.4-46.3) fL RDW Coeff of Dereck (11.5-14.5) % Plt Count (130-400) K/uL MPV (7.4-10.4) fL Immature Gran % (Auto) % Neut % (Auto) % Lymph % (Auto) % [place] % (Auto) % Eos % (Auto) % Baso % (Auto) % Neut # (Auto) (1.4-6.5) K/uL Lymph # (Auto) (1.2-3.4) K/uL [place] # (Auto) (0.11-0.59) K/uL Eos # (Auto) (0-0.5) K/uL Baso # (Auto) (0-0.2) K/uL Immature Gran # (Auto) (0.00-0.02) K/uL PT 9.5 (9.0-12.0) Seconds INR 0.9 (0.9-1.1) APTT 21.2 (21.0-31.0) Seconds PTT Ratio 0.8 Sodium (136-145) mmol/L Potassium (3.5-5.1) mmol/L Chloride (98-107) mmol/L Carbon Dioxide (21-32) mmol/L Anion Gap (3-11) BUN (7-18) mg/dl Creatinine (0.6-1.2) mg/dl Est Cr Clr Drug Dosing ml/min Est GFR ( Amer) ml/min Est GFR (Non-Af Amer) ml/min BUN/Creatinine Ratio (10-20) Glucose (70-99) mg/dl Calcium (8.5-10.1) mg/dl Total Bilirubin (0.2-1) mg/dl AST (15-37) U/L ALT (12-78) Alkaline Phosphatase (45-117) U/L Total Protein (6.4-8.2) gm/dl Albumin (3.4-5.0) gm/dl Globulin (2.5-4.0) gm/dl Albumin/Globulin Ratio (0.9-2) Amylase (25-115) U/L Lipase (73-393) U/L Urine Color Urine Appearance (Clear) Urine pH (4.5-7.5) Ur Specific [place] (1.000-1.030) Urine Protein (Negative) Urine Glucose (UA) (Negative) Urine Ketones (Negative) Urine Blood (Negative) Urine Nitrite (Negative) Urine Bilirubin (Negative) Urine Urobilinogen (Negative) Ur Leukocyte Esterase (Negative) Urine WBC (Auto) (0-5) /hpf Urine RBC (Auto) (0-4) /hpf U Hyaline Cast (Auto) (0-5) /lpf U Epithel Cells (Auto) (0-5) /lpf Urine Bacteria (Auto) (Negative) SARS-CoV-2, RNA, NAAT NEGATIVE (NEGATIVE) Imaging Data Attestation: I personally reviewed and interpreted this imaging study as follows: MDM Narrative Prior records/ancillary studies reviewed. Triage Nursing notes reviewed. Additional history obtained from nursing. The patient's history was concerning for abdominal pain. Differential diagnosis: Etiologies such as appendicitis, diverticulitis, PUD, biliary pathology, UTI, pancreatitis, obstruction, mesenteric ischemia, aortic pathology, infections, inflammatory bowel disease, renal colic, as well as others were entertained. Physical examination findings: As above. ER treatment provided: An order was placed for continuous cardiac monitoring. The monitor shows a rate of 60-1 20 with a sinus rhythm. Morphine, Zofran, IV fluids, Zosyn On reassessment the patient felt better. Diagnostics interpreted by me: The labs revealed elevated LFTs Imaging studies: Preliminary Findings Only See Final Report For Complete Findings CT ABDOMEN & PELVIS With Contrast: Two masses in the right kidney measuring 2 cm in the midpole and 1.6 cm in the inferior pole have increased in size since the prior CT abdomen and pelvis examination performed on 04/25/2017 when they measured 1.5 cm and 1 cm respectively. These are concerning for malignancy. An additional 1.2 cm mass in the left inferior pole is also concerning for malignancy. The remaining solid organs are within normal limits. Cholecystectomy. No obstruction. Diverticulosis. Normal appendix. No fracture. Radiologist: Eliza Tompkins MD Consultation: A consultation was placed with the hospitalist. The case was discussed and d iagnostics were reviewed. The patient was evaluated in the ER for further treatment. Exam and history seem consistent with renal masses concerns for possible cancer along with elevated LFTs concern and moderate abdominal pain with possible retained stone in the common bile duct. Medicine is consulted. Patient will be evaluated. Patient is agreeable. By the evaluation outlined above emergent etiologies such as appendicitis, diverticulitis, PUD, UTI, pancreatitis, obstruction, mesenteric ischemia, aortic pathology, inflammatory bowel disease, renal colic, as well as others were deemed relatively unlikely. The pt informed about the findings as listed above. All questions were answered and pleased with the treatment. The chart was completed utilizing [employer] voice recognition software. Grammatical errors, random word insertions, pronoun errors, and incomplete sentences are an occassional consequence of this system due to software limitations, ambient noise, and hardware issues. Any formal questions or concerns about the content, text, or information contained within the body of this dictation should be directly addressed to the physician medical administrative assistant for clarification. Impression & Plan Bilateral kidney masses, Elevated liver enzymes, Abdominal pain in female patient Discharge Plan Visit Data Chief Complaint: Abdominal Pain Stated Complaint: severe stomach pain, nausea, psbly food related? ED Provider: Mary Alice Diaz ED Midlevel Provider: Tika Sena Discharge Problem: Bilateral kidney masses, Elevated liver enzymes, Abdominal pain in female patient Patient Disposition: Admitted As Inpatient Condition: Fair Forms Stand Alone Forms: My [facility] [employer] Prescriptions Prescriptions: No Action multivitamin [Multiple Vitamins] Tablet 1 tab PO DAILY RF: 0 metoprolol succinate 50 mg tablet extended release 24 hr 50 mg PO DAILY RF: 0 baclofen 10 mg tablet 10 mg PO AMPM RF: 0 epinephrine [EpiPen] 0.3 mg/0.3 mL Auto-Injector 0.3 mg IM UD PRN (Reason: Allergic Reaction) RF: 0 albuterol sulfate 90 mcg/actuation Hfa Aerosol Inhaler 1 inh INHALATION UD PRN (Reason: Shortness Of Breath Or Wheezing) RF: 0 cholecalciferol (vitamin D3) [Vitamin D3] 125 mcg (5,000 unit) Tablet 125 mcg PO DAILY RF: 0 Referrals Referrals: Starla Souza, [Primary Care Provider] -
[2021-05-09] MEDS ORDERED: PIPERACILL/TAZOBAC CONSULT ACTIVE PRN (02:53)
[2021-05-09] MEDS ORDERED: PIPERACILLIN/TAZOBACTAM 4.5 GM/120 ML BAG IV ONE (02:53)
[2021-05-09] MEDS: HYDROmorphone INJ 0.5 MG/0.5 ML SYR IV PRN ×2 (05:31→08:27)
[2021-05-09] MEDS ORDERED: ALBUTEROL HFA 8 GM INHALER INH PRN (07:07)
[2021-05-09] MEDS ORDERED: EPINEPHrine ADULT AUTO-INJECT 0.3 MG SYR IM PRN (07:07)
--- NOTE | 2021-05-09 07:22 | CT Scan Report ---
CT abd pelvis IV con only CLINICAL HISTORY: severe upper abd pain, elevated lfts, no GB COMPARISON STUDY: 04/25/2017 CT DOSE: 1020.92 mGy.cm TECHNIQUE: Standard CT of the Abdomen and Pelvis was performed with IV contrast. A dose lowering julio hnique was utilized adhering to the principles of ALARA. Contrast Volume: Optiray 320, 90 ml. The patient did not receive oral contrast. FINDINGS: Lung base: The lung bases are clear. Abdominal cavity: There is no evidence for abdominal mass, adenopathy or ascites. Liver: There is homogeneous attenuation of the liver parenchyma. There is no evidence for enhancing m ass lesion. Spleen: There is homogeneous attenuation of the splenic parenchyma. There is no enhancing mass lesion . Pancreas: There is homogeneous attenuation of the pancreatic parenchyma. There is no evidence for mas s lesion or peripancreatic fluid collection. Gall Bladder: The patient is again status post cholecystectomy. Adrenal glands: The adrenal glands are normal in size and attenuation. There is no evidence for enhan cing mass lesion. Kidneys: There is homogeneous attenuation of the renal parenchyma bilaterally. There is no evidence f or renal calculus or hydronephrosis. Compared to the previous examination, there are 2 exophytic cyst ic lesion seen within the right kidney which have increased in size. They currently measure 2.2 and 1 .5 cm when compared to 1.5 and 1.0 cm on the previous study. These probably represent hemorrhagic cys ts. Follow-up ultrasound is recommended for further evaluation and confirmation. There is also a smal l exophytic cyst present involving the left kidney measuring 1.3 cm. Again, this most likely represen ts an hemorrhagic cyst . No other definite enhancing masses are seen bilaterally. Bowel: The bowel loops are normally placed within the abdomen and pelvis without evidence for dilatat ion or obstruction. There is no evidence for mass lesion. There is mild sigmoid diverticulosis withou t evidence for diverticulitis. There are no inflammatory changes present. There is no evidence for fr ee air. There is a normal appendix in the right lower quadrant. Bladder: The bladder is within normal limits with no evidence for focal mass, calculus or diverticulu m. Mild diffuse thickening of the bladder wall is again seen. : There is no evidence for pelvic mass or adenopathy. There is no evidence for pelvic ascites. Vasculature: There is no evidence for aneurysmal dilatation of the abdominal aorta. Osseous structures: There is no acute osseous pathology. Degenerative changes are present within the lumbar spine. IMPRESSION: 1. No acute intra-abdominal or pelvic abnormality. 2. Interval enlargement of bilateral exophytic cysts of the kidneys, most likely representing hemorrh agic cyst. Follow-up kidney ultrasound is recommended for further evaluation and confirmation. 3. Diverticulosis without evidence for diverticulitis. 4. Additional nonacute findings are delineated above. ACT 112: Positive. There are findings on this exam that require communication between the performing entity and the patient following Patient Test Result Information Act ([place] Act 112) guidelines. Electronically signed by: Geovanny Simental M.D. 05/09/2021 7:21 AM
--- NOTE | 2021-05-09 07:45 | History and Physical Report ---
DATE OF ADMISSION: 05/09/2021. CHIEF COMPLAINT: Abdominal pain. HISTORY OF PRESENT ILLNESS: A 50-year-old female with past medical history significant for prediabetes, hypercholesterolemia, exercise-induced asthma, mild sleep apnea, interstitial lung disease, hypertension, history of cystic duct calculus, acquired renal cyst, endometrial polyp,pruritic disorder, benign hypermobility syndrome, generalized osteoarthritis, migraines, depression, history of retinal detachment, obesity, anxiety. Presents with abdominal pain. The patient started to have right upper quadrant abdominal pain and epigastric pain, severe in nature, has also some nausea from middle of night. She has a history of gallstones and cholecystectomy in the past and todays pain felt similar and she came to the ER. In the ER, after pain medications the pain is better now and her labs showed bilirubin is okay, but AST and ALT are elevated and alkaline phosphatase is mildly elevated. Imaging showed renal lesions. The patient is currently resting comfortably and hemodynamically stable. Denies any headache. No dizziness, no blurred vision, no earache, no runny nose, no sore throat. Appetite was okay before this episode and was swallowing okay and recently gained about 15 pounds in the holidays. Denies any chest pain, no shortness of breath. Normal bowel and bladder movements. No swelling in the legs. Ambulates okay. ALLERGIES: BEE VENOM, WHEAT, LATEX, CASHEW NUT, MAURA, PISTACHIO NUT, UNKNOWN ANTIBIOTICS. PAST MEDICAL HISTORY: As mentioned above. PAST SURGICAL HISTORY: EGD with endoscopic ultrasound, ERCP, laparoscopic cholecystectomy, laser surgery of inner eye, repair of detached retina. MEDICATIONS: The patient is on albuterol 1 puff inhalation q.i.d. p.r.n., baclofen 10 mg p.o. b.i.d., vitamin D 125 mcg p.o. daily, EpiPen p.r.n., metoprolol succinate 50 mg p.o. daily, multivitamins with minerals 1 tablet p.o. daily. FAMILY HISTORY: Significant for daughter has allergies, mother has allergies, brother has asthma, mother has asthma, father has diabetes. SOCIAL HISTORY: . No smoking. Alcohol occasional. No drug use. REVIEW OF SYSTEMS: As per HPI. Rest of the review of systems is negative. PHYSICAL EXAMINATION: GENERAL: The patient is obese, not in acute distress. VITAL SIGNS: Temperature 36.4, pulse 97, respiratory rate 16, blood pressure 151/101, oxygen 97% on room air. HEENT: Pupils equal, round, and reactive to light. Oral mucosa moist. NECK: No JVD, no masses. CARDIOVASCULAR: S1 and S2 heard. Regular rate and rhythm. No murmur, no gallop. RESPIRATORY SYSTEM: Normal AP diameter. No accessory muscle use. No wheezing, no crackles. ABDOMEN: Right upper quadrant tenderness and also in epigastrium. mild guarding present. No rigidity, no distention. No CVA tenderness. CENTRAL NERVOUS SYSTEM: Cranial nerves II through XII are grossly intact, nonfocal. EXTREMITIES: No edema, no erythema. LABORATORY DATA: WBC 8.2, hemoglobin 14.4, hematocrit 42.1, platelets 328. PT 9.5, INR 0.9, APTT 21.2. Sodium 134, potassium 3.6, chloride 103, bicarbonate 25, BUN 19, creatinine 0.9, serum glucose 128, calcium 9.5, total bilirubin 0.8, AST 738, ALT 514, alkaline phosphatase 128. Urinalysis, +1 blood. SARS-CoV-2 RNA negative. IMAGING DATA: CT of the abdomen and pelvis, preliminary report shows two masses in the right kidney measuring 2 cm in the middle pole and 1.6 cm in the inferior pole, have increased in size since the prior CT of abdomen and pelvis. These are concerning for malignancy. An additional 1.2 cm mass in the left inferior pole is also concerning for malignancy. ASSESSMENT AND PLAN: This is a 50-year-old female who presents with right upper quadrant and epigastric abdominal pain. 1. Right upper quadrant and epigastric pain: Elevated LFTs. Bilirubin is okay. AST 738, ALT 514, alkaline phosphatase 128. The patient has history of gallstones in the past and is status post a cholecystectomy. CT scan of the abdomen and pelvis preliminary report shows renal lesions concerning for malignancy. Will keep the patient n.p.o., IV fluids, IV antiemetics, IV Dilaudid p.r.n. for pain and will consult GI and also will follow the repeat labs in the a.m. ER empirically started on Zosyn, which will be continued.We will also get a gallbladder and liver ultrasound. 2. Renal lesions concerning for malignancy as per the preliminary report. We will follow the final report. Consult urology. The patient has history of renal cyst. 3. Hypertension: Continue metoprolol succinate. 4. History of asthma: On albuterol p.r.n. and montelukast. 5. Deep venous thrombosis prophylaxis: Sequential compression devices for now. DISPOSITION: Closely monitor in the medical floor. PT, OT prior to discharge. Social service to help with discharge planning. Job ID: [id number] [facility]ERTyshawn
[2021-05-09] MEDS ORDERED: FAMOTIDINE 20MG/5ML IV PUSH IV ONE ×2 (08:09→22:50)
[2021-05-09] MEDS: SODIUM CHLORIDE 0.9% 1000ML 1,000 ML IV SCH ×2 (08:26→23:28)
[2021-05-09] MEDS: FAMOTIDINE 20 MG in SYRINGE 3 ML IV SCH ×2 (08:26→23:27)
[2021-05-09] MEDS: ONDANSETRON INJ 2 MG/ML 2 ML VIAL IV PRN ×2 (08:26→14:27)
[2021-05-09] MEDS: PIPERACILLIN/TAZOBACTAM 4.5 GM in DEXTROSE 5% 100 ML IV SCH ×3 (08:27→23:38)
[2021-05-09] MEDS: hydrALAZINE HCL 20 MG/ML VIAL IV PRN ×2 (08:38→18:30)
[2021-05-09 08:56] LABS: Basophils # (auto) 0.02 K/uL (0-0.2); Basophils % (auto) 0.2 %; Eosinophils # (auto) 0.16 K/uL (0-0.5); Eosinophils % (auto) 1.9 %; Hematocrit (blood only) 40.5 % (37-47); Hemoglobin 14.2 g/dL (12.0-16.0); Immature Granulocytes # (auto) 0.01 K/uL (0.00-0.02); Immature Granulocytes % (auto) 0.1 %; Lymphocytes # (auto) 1.45 K/uL (1.2-3.4); Lymphocytes % (auto) 17.6 %; Mean Corpuscular Hemoglobin 30.6 pg (25-34); Mean Corpuscular Hgb Conc 35.1 g/dL (32-36); Mean Corpuscular Volume 87.3 fL (80-100); Mean Platelet Volume 9.2 fL (7.4-10.4); Monocytes # (auto) 0.86 K/uL (0.11-0.59); Monocytes % (auto) 10.4 %; Neutrophils # (auto) 5.75 K/uL (1.4-6.5); Neutrophils % (auto) 69.8 %; Platelet Count 382 K/uL (130-400); RDW Coefficient of Variation 13.8 % (11.5-14.5); RDW Standard Deviation 44.1 fL (36.4-46.3); Red Blood Count 4.64 M/uL (4.2-5.4); White Blood Count 8.25 K/uL (4.8-10.8)
--- NOTE | 2021-05-09 09:20 | Ultrasound Report ---
US gallbladder LIMITED ABDOMEN CLINICAL HISTORY: RUQ pain, elevated LFTs. COMPARISON: None. TECHNIQUE: Multiple grayscale and color images of the right upper quadrant of the abdomen. FINDINGS: Pancreas: The pancreas is within normal limits with no focal mass or peripancreatic fluid collection identified. Liver: The liver is at the upper limits of normal in size measuring 16.9 cm in the axillary margin. T here is mild increase echogenicity present characteristic of fatty infiltration. There is no evidence for a focal mass. There is no intrahepatic biliary duct dilatation. Gallbladder: The patient is status post cholecystectomy. Common Bile Duct: (CBD): It is normal in size measuring 5 mm. Inferior Vena Cava (IVC): The imaged IVC is patent. Right kidney: There is no evidence for hydronephrosis, calculus or gross renal mass. There is a smal l simple cyst seen involving the lower pole measuring 1.8 cm. No further follow-up is necessary for t his benign finding. The kidney is normal in size. IMPRESSION: Liver at the upper limits of normal in size with mild fatty infiltration. ACT 112: Negative or not required by law. Electronically signed by: Geovanny Simental M.D. 05/09/2021 9:19 AM
[2021-05-09 09:27] LABS: Albumin Level 3.9 gm/dl (3.4-5.0); BUN Creatinine Ratio 15.8 (10-20); Calcium 9.2 mg/dl (8.5-10.1); Creatinine Clr Calc Pharmacy 84.4 ml/min; Est GFR (African American) 85.8 ml/min; Potassium 3.8 mmol/L (3.5-5.1)
[2021-05-09 09:40] LABS: Bilirubin Direct 1.6 mg/dl (0-0.2); Bilirubin,Total 2.1 mg/dl (0.2-1); Total Protein 7.8 gm/dl (6.4-8.2)
--- NOTE | 2021-05-09 09:43 | Ultrasound Report ---
RENAL ULTRASOUND HISTORY: Follow-up renal masses. Abnormal CT. COMPARISON: Abdomen and pelvis CT 05/09/2021. FINDINGS: Right kidney: 12.0 cm. There is a 1.8 cm hypoechoic exophytic lesion within the lower pole. This sonia esponds to the abnormality on the prior CT examination. This appears to demonstrate internal echoes a nd therefore does not represent a simple cyst. No hydronephrosis. Normal corticomedullary differentia tion and cortical thickness. Left kidney: 11.5 cm. There is a 1.1 cm hypoechoic lesion within the lower pole corresponding to the prior CT abnormality. This appears to demonstrate internal echoes and therefore does not represent a simple cyst. No hydronephrosis. Normal corticomedullary differentiation and cortical thickness. Bladder: No bladder wall thickening. The bilateral ureteral jets were identified. IMPRESSION: Bilateral renal lesions as described above concerning for solid renal masses. Therefore, renal cell c arcinomas remaining the diagnosis of exclusion. Follow-up dedicated renal MRI is recommended for furt her evaluation. ACT 112: Positive. There are findings on this exam that require communication between the performing entity and the patient following Patient Test Result Information Act ([place] Act 112) guidelines. Electronically signed by: North Romano M.D. 05/09/2021 9:42 AM
[2021-05-09] MEDS: BACLOFEN 10 MG TAB PO SCH ×2 (09:54→23:27)
[2021-05-09] MEDS: CHOLECALCIFEROL 5,000 UNITS 125 MCG TAB PO SCH (09:54)
[2021-05-09] MEDS: MULTIVITAMIN TAB PO SCH (09:54)
[2021-05-09] MEDS: METOPROLOL SUCC 50MG EXT REL TAB PO SCH (10:06)
--- NOTE | 2021-05-09 10:12 | Gastrointestinal Consultation ---
Date of Consultation May 09, 2021 Assessment & Plan (1) Elevated liver enzymes: 50 yo female with abd pain and elevated LFTs in the setting a history of cholecystectomy and normal size CBD on imaging today. Mainly transaminase elevated, AST greater than ALT. - Await repeat LFTs done this AM - Check acute hepatitis panel, AMA, ASMA, ceruloplasmin, ABNER - Check viral serologies - Check CK. - Work up of renal lesions per primary team. (2) Abdominal pain in female patient: History of Present Illness Reason for Consultation: abd pain and elevated LFTs Attending Physician: Dwayne Davis MD History of Present Illness 50 yo female with ILD, HTN, renal cycts, OA and morbid obesity who presented to the ER with complaints of upper and generalized abd pain and nausea. Work up in the ER is significant for elevated LFTs with AST 758, ALT, 514, AP 128, and normal bilirubin. Normal lipase. She has a history of cholecystectomy and was worried this pain was related to gallstones again as it was similar to what she had prior to her iesha. Occasional ETOH. No recent abx. Denies regular NSAID use. CT showed renal lesions/?hemorrhagic cysts which are being worked up by the primary team. Repeat LFTS today are pending. US of the GB and biliary tree showed CBD of 5mm. Allergies Allergy/AdvReac Type Severity Reaction Status Date / Time bee venom protein (honey bee) Allergy Severe ANAPHYLAXIS Unverified 05/09/21 02:30 wheat Allergy Intermediate gi upset Unverified 05/09/21 02:30 latex Allergy Mild RASH Unverified 05/09/21 02:30 cashew nut Allergy Unknown throat Unverified 05/09/21 02:30 closes marybel Allergy Unknown throat Unverified 05/09/21 02:30 closes pistachio nut Allergy Unknown throat Unverified 05/09/21 02:30 closes UNKNOWN ANTIBIOTIC Allergy Unknown hives & Uncoded 05/09/21 02:30 trouble breathing Home Medications Medication Instructions Recorded Confirmed Type albuterol sulfate 90 mcg/actuation 1 inh INHALATION UD PRN 05/09/21 05/09/21 History aerosol inhaler baclofen 10 mg tablet 10 mg PO AMPM 05/09/21 05/09/21 History cholecalciferol (vitamin D3) 125 125 mcg PO DAILY 05/09/21 05/09/21 History mcg (5,000 unit) tablet (Vitamin D3) epinephrine 0.3 mg/0.3 mL 0.3 mg IM UD PRN 05/09/21 05/09/21 History injection, auto-injector (EpiPen) metoprolol succinate 50 mg 50 mg PO DAILY 05/09/21 05/09/21 History tablet,extended release 24 hr multivitamin (Multiple Vitamins) 1 tab PO DAILY 05/09/21 05/09/21 History Patient History Medical History Asthma Dental cavity Hypertension Retinal detachment Seasonal allergies Surgical History History of cholecystectomy Social History Smoking Status: Never smoker Hx Alcohol Use: No Hx Substance Use: No Preferred Language: Zambian Communication Ability: Effective [employer] Teacher Required: No Beliefs That Will Affect Care: None Current Living Situation: Alone Current Living Situation Comment: lives by herself. Other Information That Helps Us Care for You: No Feels Safe at Home: Yes Safety Concerns: Feels Safe At This Time Assistive Devices: None Review of Systems Review of Systems: All systems reviewed & are unremarkable except as noted in HPI & below Physical Exam Constitutional: WD/WN, vitals as above Eyes: PERRL, conjunctivae normal, anicteric sclerae Neck: trachea midline, no thyromegaly Respiratory: normal respiratory effort, lungs clear to auscultation Cardiovascular: RRR, no murmur, no edema Gastrointestinal (Abdomen): Inspection/Auscultation: abdomen normal to inspection and normal bowel sounds Percussion/Palpation: + abdomen tender Musculoskeletal: no cyanosis or clubbing, extremities motor strength 5/5 Neurologic: CN's II-XI intact bilaterally Results & Data ([facility]) Vital Signs (Past 12 Hours) Vital Signs Temp Pulse Pulse Resp BP BP Pulse Ox 05/09/21 10:00 50 L 05/09/21 09:14 55 L 18 177/107 H 93 05/09/21 07:46 36.8 C 58 L 18 192/113 H 97 05/09/21 07:07 59 L 18 200/115 H 98 05/09/21 05:44 64 16 151/101 H 97 05/09/21 03:21 97 H 16 151/101 H 97 05/08/21 22:56 36.4 C L 82 18 209/120 H 96
--- NOTE | 2021-05-09 10:42 | Urology Consultation ---
Date of Consultation May 09, 2021 Assessment & Plan (1) Bilateral kidney masses: -CT scan shows enlarging renal masses b/l R>L -KATE raises concern for solid component -Would be reasonable to consider an MRI of the kidneys as an outpatient to further characterize the lesions -Alternatively, a biopsy could be considered (as an outpatient) -No need for surgical intervention during this hospitalization. (2) Abdominal pain in female patient: -Pain likely GI in orgin -It is rare for renal lesions of this size to cause pain History of Present Illness Reason for Consultation: Renal Mass Attending Physician: Dwayne Davis MD History of Present Illness 50 y/o Female with a complex past med hx noted in EMR. She presented to the ER with abdominal pain. RUQ. Severe in nature. She also reported nausea. She has a hx of gall stones s/p cholecystectomy in the past. Pain was similar to her experience with that. No hx of kidney stones. No hematuria. No dysuria. Min urge and freq. Upon admission a CT scan was performed and showed the following: "There is no evidence for renal calculus or hydronephrosis. Compared to the previous examination, there are 2 exophytic cystic lesion seen within the right kidney which have increased in size. They currently measure 2.2 and 1.5 cm when compared to 1.5 and 1.0 cm on the previous study. These probably represent hemorrhagic cysts." A KATE was performed in follow-up to the CT Scan. Results as follows: "Bilateral renal lesions as described above concerning for solid renal masses. Therefore, renal cell carcinomas remaining the diagnosis of exclusion. Follow-up dedicated renal MRI is recommended for further evaluation." She was admitted for further evaluation of her abd pain. Urology consulted for the renal lesions.. Allergies Allergy/AdvReac Type Severity Reaction Status Date / Time bee venom protein (honey bee) Allergy Severe ANAPHYLAXIS Unverified 05/09/21 02:30 wheat Allergy Intermediate gi upset Unverified 05/09/21 02:30 latex Allergy Mild RASH Unverified 05/09/21 02:30 cashew nut Allergy Unknown throat Unverified 05/09/21 02:30 closes marybel Allergy Unknown throat Unverified 05/09/21 02:30 closes pistachio nut Allergy Unknown throat Unverified 05/09/21 02:30 closes UNKNOWN ANTIBIOTIC Allergy Unknown hives & Uncoded 05/09/21 02:30 trouble breathing Home Medications Medication Instructions Recorded Confirmed Type albuterol sulfate 90 mcg/actuation 1 inh INHALATION UD PRN 05/09/21 05/09/21 History aerosol inhaler baclofen 10 mg tablet 10 mg PO AMPM 05/09/21 05/09/21 History cholecalciferol (vitamin D3) 125 125 mcg PO DAILY 05/09/21 05/09/21 History mcg (5,000 unit) tablet (Vitamin D3) epinephrine 0.3 mg/0.3 mL 0.3 mg IM UD PRN 05/09/21 05/09/21 History injection, auto-injector (EpiPen) metoprolol succinate 50 mg 50 mg PO DAILY 05/09/21 05/09/21 History tablet,extended release 24 hr multivitamin (Multiple Vitamins) 1 tab PO DAILY 05/09/21 05/09/21 History Patient History Medical History Asthma Dental cavity Hypertension Retinal detachment Seasonal allergies Surgical History History of cholecystectomy Social History Smoking Status: Never smoker Hx Alcohol Use: No Hx Substance Use: No Preferred Language: Greenlandic Communication Ability: Effective Mercury Washer Required: No Beliefs That Will Affect Care: None Current Living Situation: Alone Current Living Situation Comment: lives by herself. Other Information That Helps Us Care for You: No Feels Safe at Home: Yes Safety Concerns: Feels Safe At This Time Assistive Devices: None Review of Systems Constitutional: as per Subjective / HPI Genitourinary: + urinary frequency Physical Exam Constitutional: WD/WN, vitals as above Neck: trachea midline, no thyromegaly Respiratory: normal respiratory effort, lungs clear to auscultation Cardiovascular: RRR, no murmur, no edema Gastrointestinal (Abdomen): RUQ tenderness Skin: no rashes, warm and dry Neurologic: patellar DTR's 2+ bilat, sensation intact Psychiatric: A+Ox3, euthymic affect Lymphatic: no cervical or axillary lymphadenopathy Results & Data ([facility]) Vital Signs (Past 12 Hours) Vital Signs Temp Pulse Pulse Resp BP BP Pulse Ox 05/09/21 10:00 50 L 05/09/21 09:14 55 L 18 177/107 H 93 05/09/21 07:46 36.8 C 58 L 18 192/113 H 97 05/09/21 07:07 59 L 18 200/115 H 98 05/09/21 05:44 64 16 151/101 H 97 05/09/21 03:21 97 H 16 151/101 H 97 05/08/21 22:56 36.4 C L 82 18 209/120 H 96 PG Care Time/CCT Total # of Minutes Spent Total Time Spent with Patient: Total time spent is greater than 50% in coordination of care (as documented) at patient's floor/unit and/or counseling patient: 60 min Coding Level of Care Code 99422 Inpt Consult Level 4 Diagnoses Bilateral kidney masses N28.89 Abdominal pain in female patient R10.9 Time Spent (min) 60
[2021-05-09 14:15] LABS: Hepatitis B Surf Ag Rflx Conf Neg (Neg)
[2021-05-09] MEDS ORDERED: PROMETHAZINE HCL 6.25 MG in SODIUM CHLORIDE 0.9% 50 ML IV PRN (14:31)
[2021-05-09 14:43] LABS: Hepatitis C IgG 13Yrs+Old_Rflx Neg (Neg)
[2021-05-09] MEDS ORDERED: MAGNESIUM SULFATE / D5W 1 GM/100 ML BAG IV ONE (15:33)
[2021-05-09] MEDS ORDERED: PROMETHAZINE 6.25 MG/50.25 ML NSS IV ONE ×2 (16:17→23:43)
--- NOTE | 2021-05-09 21:16 | Magnetic Resonance Report ---
MRCP CLINICAL HISTORY: Elevated hepatic transaminases. COMPARISON STUDY: Abdominal CT and abdominal ultrasound performed the same day 05/09/2021. TECHNIQUE: Abdominal MRCP is performed utilizing various T2-weighted sequences in the axial and coron al planes. IV contrast was not administered for this examination. 3-D reformats are created and asses sed. The MRCP images are significantly degraded by motion artifact. FINDINGS: The gallbladder is surgically absent. There is no intra or extrahepatic biliary ductal dilatation. Th e common bile duct measures up to 4 mm. No filling defects are clearly identified to suggest choledoc holithiasis. This is suboptimally assessed due to motion artifact. A 9 mm filling defect is suggested within the cystic duct on coronal image #11 and axial image #17. A calcification was seen at this si te on today's CT scan. The pancreatic duct is normal in caliber. The liver is enlarged measuring 19.2 cm in length. Steatosis was shown on today's CT scan. The unenha nced liver, pancreas, adrenal glands, and kidneys are otherwise grossly unremarkable. The abdominal a eula is normal in caliber. There is no evidence of bowel obstruction. No ascites is identified. There is no pleural effusion. No destructive bony lesion is seen. IMPRESSION: 1. Significantly motion degraded examination. 2. Status post cholecystectomy. 3. Suspect a 9 mm calculus within a cystic duct remnant. This was also seen on today's CT scan. 4. There is no intra or extrahepatic biliary ductal dilatation, and no convincing evidence of choledo cholithiasis. This is suboptimally assessed due to motion. 5. Hepatomegaly and hepatic steatosis. Dictated: 05/09/2021 8:40 PM Transcribed: 05/09/2021 9:04 PM Macie [id number] APARNA_Nirmal Electronically signed by: Abdulkadir Cage M.D. 05/09/2021 9:14 PM
[2021-05-10] MEDS: HYDROmorphone INJ 0.5 MG/0.5 ML SYR IV PRN (02:39)
[2021-05-10 03:39] LABS: Hematocrit (blood only) 38.2 % (37-47); Hemoglobin 13.4 g/dL (12.0-16.0); Mean Corpuscular Hemoglobin 30.5 pg (25-34); Mean Corpuscular Hgb Conc 35.1 g/dL (32-36); Platelet Count 337 K/uL (130-400); RDW Coefficient of Variation 13.7 % (11.5-14.5); RDW Standard Deviation 44.3 fL (36.4-46.3); Red Blood Count 4.39 M/uL (4.2-5.4); White Blood Count 8.54 K/uL (4.8-10.8)
[2021-05-10 04:06] LABS: Albumin Globulin Ratio 0.9 (0.9-2); Albumin Level 3.3 gm/dl (3.4-5.0); BUN Creatinine Ratio 12.3 (10-20); Bilirubin,Total 3.5 mg/dl (0.2-1); Calcium 8.7 mg/dl (8.5-10.1); Creatinine Clr Calc Pharmacy 102.7 ml/min; Est GFR (African American) 108.7 ml/min; Est GFR (Non-African American) 93.8 ml/min; Globulin 3.5 gm/dl (2.5-4.0); Magnesium 2.2 mg/dl (1.8-2.4); Phosphorus 2.9 mg/dl (2.5-4.9); Potassium 3.1 mmol/L (3.5-5.1); Total Protein 6.8 gm/dl (6.4-8.2)
[2021-05-10] MEDS: SODIUM CHLORIDE 0.9% 1000ML 1,000 ML IV SCH ×2 (06:15→12:37)
--- NOTE | 2021-05-10 07:03 | Hospitalist Progress Note ---
Date of Service May 10, 2021 Assessment & Plan (1) Elevated LFTs: (2) History of cholecystectomy: (3) Cystic duct calculus: (4) Bilateral kidney masses: (5) Hypertension: Plan: This is a 50-year-old female who presents with right upper quadrant and epigastric abdominal pain. 1. Right upper quadrant and epigastric pain: Elevated LFTs. Bilirubin initially wnl but now also elevated. Patient reports having abdominal pain, half an hour after eating at [facility] Now persistently nauseous The patient has history of gallstones in the past and is status post a cholecystectomy. MRCP obtained shows possible stone in the cystic duct remnant. Acute hepatitis panel ordered, pending GI and general surgery consulted Plan for ERCP on Wednesday Continue Zosyn Supportive care with IV fluids, IV antiemetics, pain medications Monitor LFTs, T bili 2. Renal lesions concerning for malignancy. CT obtained in the ED, for evaluation of abdominal pain, shows renal lesions concerning for malignancy. Urology consulted. The patient has history of renal cyst. Per urology-Would be reasonable to consider an MRI of the kidneys as an outpatient to further characterize the lesions -Alternatively, a biopsy could be considered (as an outpatient) 3. Hypertension: Continue home metoprolol succinate. Added as needed hydralazine Pain likely contributory to elevated blood pressures, manage pain, as above 4. History of asthma: On albuterol p.r.n. and montelukast. No acute issues DVT prophylaxis: SCDs for now. DISPOSITION: Closely monitor in the medical floor. PT, OT prior to discharge. Admission and Anticipated Discharge Date Admission Date: May 09, 2021 Subjective Patient seen in follow-up of elevated LFTs, nausea vomiting Patient reported to the emergency room, after having right upper quadrant pain, which developed about half an hour after eating [facility] Currently patient persistently nauseous however says that she feels somewhat better than yesterday Feels that pain is also better than yesterday LFTs and T bili increased yesterday, therefore MRCP was obtained MRCP shows possible stone in the cystic duct remnant. Patient has history of cholecystectomy GI and surgery following Currently patient denies any fevers, chills, chest pain, shortness of breath, feels somewhat constipated, continues to be nauseous but somewhat improved Review of Systems Review of Systems: All systems reviewed & are unremarkable except as noted in Subjective Physical Exam Physical Exam: GENERAL: obese F in NAD HEENT: NC/AT, EOMI, Pupils equal, round, and reactive to light. Oral mucosa moist. NECK: No JVD, no masses. CARDIOVASCULAR: S1 and S2 heard. Regular rate and rhythm. No murmur, no gallop. RESPIRATORY: Normal AP diameter. No accessory muscle use. No wheezing, no crackles. ABDOMEN: Right upper quadrant tenderness and also in epigastrium. mild guarding present. No rigidity, no distention. No CVA tenderness. NEURO:Alert and oriented, answers questions appropriately, no facial asymmetry, moves extremities EXTREMITIES: No edema, no erythema. Results & Data Results & Data ([facility]) Vital Signs (Past 12 Hours) Vital Signs Temp Pulse Pulse Resp BP BP Pulse Ox 05/10/21 02:15 37.1 C 77 16 153/90 H 97 05/10/21 01:00 178/103 H 05/10/21 00:59 18 97 05/10/21 00:30 178/106 H 05/10/21 00:29 98 05/10/21 00:01 98 05/10/21 00:00 188/113 H 05/09/21 23:59 97 05/09/21 23:43 183/103 H 98 05/09/21 23:00 172/108 H 97 05/09/21 22:00 173/104 H 96 05/09/21 21:30 166/98 H 96 05/09/21 21:25 98 05/09/21 19:45 61 17 162/95 H 97 05/09/21 19:30 66 17 167/89 H 96 05/09/21 19:15 65 18 158/105 H 96 Laboratory Results 05/10/21 05/10/21 05/10/21 Range/Units 03:23 03:23 03:23 WBC 8.54 (4.8-10.8) K/uL RBC 4.39 (4.2-5.4) M/uL Hgb 13.4 (12.0-16.0) g/dL Hct 38.2 (37-47) % MCV 87.0 (80-100) fL MCH 30.5 (25-34) pg MCHC 35.1 (32-36) g/dL RDW Std Deviation 44.3 (36.4-46.3) fL RDW Coeff of Dereck 13.7 (11.5-14.5) % Plt Count 337 (130-400) K/uL MPV 9.0 (7.4-10.4) fL Immature Gran % (Auto) % Neut % (Auto) % Lymph % (Auto) % [facility] % (Auto) % Eos % (Auto) % Baso % (Auto) % Neut # (Auto) (1.4-6.5) K/uL Lymph # (Auto) (1.2-3.4) K/uL [facility] # (Auto) (0.11-0.59) K/uL Eos # (Auto) (0-0.5) K/uL Baso # (Auto) (0-0.2) K/uL Immature Gran # (Auto) (0.00-0.02) K/uL Sodium 134 L (136-145) mmol/L Potassium 3.1 L D (3.5-5.1) mmol/L Chloride 102 (98-107) mmol/L Carbon Dioxide 25 (21-32) mmol/L Anion Gap 7.0 (3-11) BUN 9 D (7-18) mg/dl Creatinine 0.74 (0.6-1.2) mg/dl Est Cr Clr Drug Dosing 102.7 ml/min Est GFR ( Amer) 108.7 ml/min Est GFR (Non-Af Amer) 93.8 ml/min BUN/Creatinine Ratio 12.3 (10-20) Glucose 120 H (70-99) mg/dl Calcium 8.7 (8.5-10.1) mg/dl Phosphorus 2.9 (2.5-4.9) mg/dl Magnesium 2.2 (1.8-2.4) mg/dl Total Bilirubin 3.5 H D (0.2-1) mg/dl Direct Bilirubin (0-0.2) mg/dl AST 687 H (15-37) U/L ALT 1189 H (12-78) Alkaline Phosphatase 176 H (45-117) U/L Total Creatine Kinase (26-192) U/L Total Protein 6.8 (6.4-8.2) gm/dl Albumin 3.3 L (3.4-5.0) gm/dl Globulin 3.5 (2.5-4.0) gm/dl Albumin/Globulin Ratio 0.9 (0.9-2) Ceruloplasmin Pending ABNER Screen CMV Specimen Source CMV Qnt PCR IU/mL CMV Qnt PCR log IU/mL EBV Capsid Ag IgG Ab EBV Capsid Ag IgM Ab EBV Nuclear Antigen Ab EBV Antibody Interp Hepatitis A IgM Ab Hep Bs Antigen (Neg) Hep B Core IgM Ab Hepatitis C Antibody (Neg) 05/09/21 05/09/21 05/09/21 Range/Units 20:52 20:52 13:17 WBC (4.8-10.8) K/uL RBC (4.2-5.4) M/uL Hgb (12.0-16.0) g/dL Hct (37-47) % MCV (80-100) fL MCH (25-34) pg MCHC (32-36) g/dL RDW Std Deviation (36.4-46.3) fL RDW Coeff of Dereck (11.5-14.5) % Plt Count (130-400) K/uL MPV (7.4-10.4) fL Immature Gran % (Auto) % Neut % (Auto) % Lymph % (Auto) % [facility] % (Auto) % Eos % (Auto) % Baso % (Auto) % Neut # (Auto) (1.4-6.5) K/uL Lymph # (Auto) (1.2-3.4) K/uL [facility] # (Auto) (0.11-0.59) K/uL Eos # (Auto) (0-0.5) K/uL Baso # (Auto) (0-0.2) K/uL Immature Gran # (Auto) (0.00-0.02) K/uL Sodium (136-145) mmol/L Potassium (3.5-5.1) mmol/L Chloride (98-107) mmol/L Carbon Dioxide (21-32) mmol/L Anion Gap (3-11) BUN (7-18) mg/dl Creatinine (0.6-1.2) mg/dl Est Cr Clr Drug Dosing ml/min Est GFR ( Amer) ml/min Est GFR (Non-Af Amer) ml/min BUN/Creatinine Ratio (10-20) Glucose (70-99) mg/dl Calcium (8.5-10.1) mg/dl Phosphorus (2.5-4.9) mg/dl Magnesium (1.8-2.4) mg/dl Total Bilirubin (0.2-1) mg/dl Direct Bilirubin (0-0.2) mg/dl AST (15-37) U/L ALT (12-78) Alkaline Phosphatase (45-117) U/L Total Creatine Kinase (26-192) U/L Total Protein (6.4-8.2) gm/dl Albumin (3.4-5.0) gm/dl Globulin (2.5-4.0) gm/dl Albumin/Globulin Ratio (0.9-2) Ceruloplasmin ABNER Screen Pending CMV Specimen Source Pending CMV Qnt PCR IU/mL Pending CMV Qnt PCR log IU/mL Pending EBV Capsid Ag IgG Ab Pending EBV Capsid Ag IgM Ab Pending EBV Nuclear Antigen Ab Pending EBV Antibody Interp Pending Hepatitis A IgM Ab Pending Hep Bs Antigen (Neg) Hep B Core IgM Ab Pending Hepatitis C Antibody (Neg) 05/09/21 05/09/21 05/09/21 Range/Units 13:17 13:17 08:29 WBC (4.8-10.8) K/uL RBC (4.2-5.4) M/uL Hgb (12.0-16.0) g/dL Hct (37-47) % MCV (80-100) fL MCH (25-34) pg MCHC (32-36) g/dL RDW Std Deviation (36.4-46.3) fL RDW Coeff of Dereck (11.5-14.5) % Plt Count (130-400) K/uL MPV (7.4-10.4) fL Immature Gran % (Auto) % Neut % (Auto) % Lymph % (Auto) % [facility] % (Auto) % Eos % (Auto) % Baso % (Auto) % Neut # (Auto) (1.4-6.5) K/uL Lymph # (Auto) (1.2-3.4) K/uL [facility] # (Auto) (0.11-0.59) K/uL Eos # (Auto) (0-0.5) K/uL Baso # (Auto) (0-0.2) K/uL Immature Gran # (Auto) (0.00-0.02) K/uL Sodium 133 L (136-145) mmol/L Potassium 3.8 (3.5-5.1) mmol/L Chloride 104 (98-107) mmol/L Carbon Dioxide 24 (21-32) mmol/L Anion Gap 5.0 (3-11) BUN 14 (7-18) mg/dl Creatinine 0.90 (0.6-1.2) mg/dl Est Cr Clr Drug Dosing 84.4 ml/min Est GFR ( Amer) 85.8 ml/min Est GFR (Non-Af Amer) 74.0 ml/min BUN/Creatinine Ratio 15.8 (10-20) Glucose 155 H (70-99) mg/dl Calcium 9.2 (8.5-10.1) mg/dl Phosphorus (2.5-4.9) mg/dl Magnesium 2.0 (1.8-2.4) mg/dl Total Bilirubin 2.1 H D (0.2-1) mg/dl Direct Bilirubin 1.6 H (0-0.2) mg/dl AST 1378 H (15-37) U/L ALT 1235 H (12-78) Alkaline Phosphatase 158 H (45-117) U/L Total Creatine Kinase 122 (26-192) U/L Total Protein 7.8 (6.4-8.2) gm/dl Albumin 3.9 (3.4-5.0) gm/dl Globulin (2.5-4.0) gm/dl Albumin/Globulin Ratio (0.9-2) Ceruloplasmin ABNER Screen CMV Specimen Source CMV Qnt PCR IU/mL CMV Qnt PCR log IU/mL EBV Capsid Ag IgG Ab EBV Capsid Ag IgM Ab EBV Nuclear Antigen Ab EBV Antibody Interp Hepatitis A IgM Ab Hep Bs Antigen Neg (Neg) Hep B Core IgM Ab Hepatitis C Antibody Neg (Neg) 05/09/21 Range/Units 08:29 WBC 8.25 (4.8-10.8) K/uL RBC 4.64 (4.2-5.4) M/uL Hgb 14.2 (12.0-16.0) g/dL Hct 40.5 (37-47) % MCV 87.3 (80-100) fL MCH 30.6 (25-34) pg MCHC 35.1 (32-36) g/dL RDW Std Deviation 44.1 (36.4-46.3) fL RDW Coeff of Dereck 13.8 (11.5-14.5) % Plt Count 382 (130-400) K/uL MPV 9.2 (7.4-10.4) fL Immature Gran % (Auto) 0.1 % Neut % (Auto) 69.8 % Lymph % (Auto) 17.6 % [facility] % (Auto) 10.4 % Eos % (Auto) 1.9 % Baso % (Auto) 0.2 % Neut # (Auto) 5.75 (1.4-6.5) K/uL Lymph # (Auto) 1.45 (1.2-3.4) K/uL [facility] # (Auto) 0.86 H (0.11-0.59) K/uL Eos # (Auto) 0.16 (0-0.5) K/uL Baso # (Auto) 0.02 (0-0.2) K/uL Immature Gran # (Auto) 0.01 (0.00-0.02) K/uL Sodium (136-145) mmol/L Potassium (3.5-5.1) mmol/L Chloride (98-107) mmol/L Carbon Dioxide (21-32) mmol/L Anion Gap (3-11) BUN (7-18) mg/dl Creatinine (0.6-1.2) mg/dl Est Cr Clr Drug Dosing ml/min Est GFR ( Amer) ml/min Est GFR (Non-Af Amer) ml/min BUN/Creatinine Ratio (10-20) Glucose (70-99) mg/dl Calcium (8.5-10.1) mg/dl Phosphorus (2.5-4.9) mg/dl Magnesium (1.8-2.4) mg/dl Total Bilirubin (0.2-1) mg/dl Direct Bilirubin (0-0.2) mg/dl AST (15-37) U/L ALT (12-78) Alkaline Phosphatase (45-117) U/L Total Creatine Kinase (26-192) U/L Total Protein (6.4-8.2) gm/dl Albumin (3.4-5.0) gm/dl Globulin (2.5-4.0) gm/dl Albumin/Globulin Ratio (0.9-2) Ceruloplasmin ABNER Screen CMV Specimen Source CMV Qnt PCR IU/mL CMV Qnt PCR log IU/mL EBV Capsid Ag IgG Ab EBV Capsid Ag IgM Ab EBV Nuclear Antigen Ab EBV Antibody Interp Hepatitis A IgM Ab Hep Bs Antigen (Neg) Hep B Core IgM Ab Hepatitis C Antibody (Neg) Medications Administered Current Inpatient Medications Albuterol (Albuterol Hfa 8 Gm Inhaler) 1 puffs INH DAILY PRN PRN Reason: Shortness Of Breath Or Wheezin Stop: 06/08/21 07:06 Baclofen (Baclofen 10 Mg Tab) 10 mg PO BID [facility] Stop: 06/08/21 08:59 Last Admin: 05/09/21 23:27 Dose: 10 mg Documented by: Hydralazine HCl (Hydralazine Hcl 20 Mg/Ml Vial) 2.5 mg IV Q4H PRN PRN Reason: SBP> 160 Stop: 06/08/21 08:29 Last Admin: 05/09/21 18:30 Dose: 2.5 mg Documented by: Hydromorphone HCl (Hydromorphone Inj 0.5 Mg/0.5 Ml Syr) 0.5 mg IV Q3H PRN PRN Reason: Pain Stop: 05/23/21 04:36 Last Admin: 05/10/21 02:39 Dose: 0.5 mg Documented by: Sodium Chloride (Nss 1000ml) 1,000 mls @ 80 mls/hr IV .[id number] [facility] Stop: 06/08/21 07:06 Last Admin: 05/10/21 06:15 Dose: Not Given Documented by: Famotidine 20 mg/ Syringe 5 mls @ 2.5 mls/min IV BID [facility] Stop: 06/08/21 07:59 Last Admin: 05/09/21 23:27 Dose: 2.5 mls/min Documented by: Piperacillin Sod/Tazobactam (Sod 4.5 gm/ Dextrose) 120 mls @ 30 mls/hr IV Q8H [facility] Stop: 05/19/21 07:59 Last Infusion: 05/10/21 03:44 Dose: Infused Documented by: Promethazine HCl 6.25 mg/ (Sodium Chloride) 50.25 mls @ 201 mls/hr IV Q6H PRN PRN Reason: Nausea And Vomiting Stop: 06/08/21 14:30 Last Infusion: 05/10/21 00:38 Dose: Infused Documented by: Metoprolol Succinate (Metoprolol Succ 50mg Ext Rel Tab) 50 mg PO DAILY [facility] Stop: 06/08/21 08:59 Last Admin: 05/09/21 10:06 Dose: Not Given Documented by: Miscellaneous Information (Piperacill/Tazobac Consult Active) 1 ea N/A UD PRN PRN Reason: Consult Stop: 06/08/21 02:52 Multivitamins (Multivitamin Tab) 1 tab PO QAM [facility] Stop: 06/08/21 08:59 Last Admin: 05/09/21 09:54 Dose: Not Given Documented by: Ondansetron HCl (Ondansetron Inj 2 Mg/Ml 2 Ml Vial) 4 mg IV Q6H PRN PRN Reason: Nausea Stop: 06/08/21 07:06 Last Admin: 05/09/21 14:27 Dose: 4 mg Documented by: Vitamin D (Cholecalciferol 5,000 Units 125 Mcg Tab) 5,000 units PO DAILY [facility] Stop: 06/08/21 08:59 Last Admin: 05/09/21 09:54 Dose: Not Given Documented by:
--- NOTE | 2021-05-10 07:21 | Gastroenterology Progress Note ---
Date of Service May 10, 2021 Assessment & Plan (1) Elevated liver enzymes: Plan: Elevated liver enzymes: 50 yo female with abd pain and elevated LFTs in the setting a history of cholecystectomy and normal size CBD on US yesterday. Increase in LFTs yesterday afternoon now with bump in bilirubin and MRCP imaging questioning stone in the cystic duct remnant. She does not have cholangitis. 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 OK to allow patient to have clear liquids today as tolerated. Will plan for EUS/ERCP Wednesday morning with . - Daily LFTs - Acute hepatitis panel pending (2) History of cholecystectomy: (3) Cystic duct calculus: Admission and Anticipated Discharge Date Admission Date: May 09, 2021 Subjective Nausea and abd pain last evening as well as vomiting. Elevation in bilirubin noted. Advised MRCP. MRCP shows possible filling defect in the cystic duct re mnant. CBD 4mm. Mild improvement in LFTs today with lag of bilirubin. Review of Systems Review of Systems: All systems reviewed & are unremarkable except as noted in HPI & below Physical Exam Constitutional: WD/WN, vitals as above Eyes: PERRL, conjunctivae normal, anicteric sclerae Respiratory: normal respiratory effort, lungs clear to auscultation Cardiovascular: RRR, no murmur, no edema Gastrointestinal (Abdomen): RUQ tenderness Musculoskeletal: no cyanosis or clubbing, extremities motor strength 5/5 Skin: no rashes, warm and dry Neurologic: moves all extremities Results & Data ([facility]) Vital Signs (Past 12 Hours) Vital Signs Temp Pulse Pulse Resp BP BP Pulse Ox 05/10/21 02:15 37.1 C 77 16 153/90 H 97 05/10/21 01:00 178/103 H 05/10/21 00:59 18 97 05/10/21 00:30 178/106 H 05/10/21 00:29 98 05/10/21 00:01 98 05/10/21 00:00 188/113 H 05/09/21 23:59 97 05/09/21 23:43 183/103 H 98 05/09/21 23:00 172/108 H 97 05/09/21 22:00 173/104 H 96 05/09/21 21:30 166/98 H 96 05/09/21 21:25 98 05/09/21 19:45 61 17 162/95 H 97 05/09/21 19:30 66 17 167/89 H 96
[2021-05-10] MEDS ORDERED: POTASSIUM CHLORIDE CRTAB 20 MEQ TABCR PO STA (07:41)
[2021-05-10] MEDS: FAMOTIDINE 20 MG in SYRINGE 3 ML IV SCH ×2 (09:02→19:09)
[2021-05-10] MEDS: PIPERACILLIN/TAZOBACTAM 4.5 GM in DEXTROSE 5% 100 ML IV SCH ×2 (09:02→16:58)
[2021-05-10] MEDS: ONDANSETRON INJ 2 MG/ML 2 ML VIAL IV PRN (09:02)
[2021-05-10] MEDS ORDERED: KETOROLAC TROMETHAMINE 15 MG/ML VIAL IV ONE (09:53)
[2021-05-10] MEDS ORDERED: MoRPHine SULFATE 2 MG/ML CARP IV PRN (09:54)
--- NOTE | 2021-05-10 09:59 | Surgery Consultation ---
Date of Consultation May 10, 2021 Assessment & Plan (1) Cystic duct calculus: This is a 50y F with a PMH of pre-DM, obesity, HTN, asthma who presented to the [facility] ED on 05/09/21 with complaints of abdominal pain, nausea/vomiting after eating [employer]. Upon workup of her symptoms patient found to have elevated LFTs and imaging with concern for a 9mm stone in the cystic duct. Patient has a history of cholecystectomy in 2016. Today LFT's show Tb: 3.5(2.1), ALT: 1189, AlkP: 176, AST: 687. WBC 8.5. On exam patient is tender to palpation in the RUQ/epigastric regions. She has been nauseated and vomiting. GI has seen patient and recommending an ERCP on wednesday when an interventionalist is available. Our recommendation would be for an ERCP retrieval of stone. We are not planning on further surgical intervention in this pt who is s/p cholecystectomy. We will follow peripherally. If any questions/concerns feel free to call back. History of Present Illness Attending Physician: Dwayne Davis MD History of Present Illness This is a 50y F with a PMH of pre-DM, obesity, HTN, asthma who presented to the [facility] ED on 05/09/21 with complaints of abdominal pain, nausea/vomiting starting 05/08 after eating [employer]. Workup in the ER revealed elevated LFT's. She has a history of cholecystectomy in 2016 here at [facility]. Imaging consistent with a stone in the cystic duct remnant. Patient denies any pain like this before. She endorses + nausea/vomiting even through today. No fevers/chills, CP/SOB. Allergies Allergy/AdvReac Type Severity Reaction Status Date / Time bee venom protein (honey bee) Allergy Severe ANAPHYLAXIS Unverified 05/09/21 02:30 wheat Allergy Intermediate gi upset Unverified 05/09/21 02:30 latex Allergy Mild RASH Unverified 05/09/21 02:30 cashew nut Allergy Unknown throat Unverified 05/09/21 02:30 closes marybel Allergy Unknown throat Unverified 05/09/21 02:30 closes pistachio nut Allergy Unknown throat Unverified 05/09/21 02:30 closes UNKNOWN ANTIBIOTIC Allergy Unknown hives & Uncoded 05/09/21 02:30 trouble breathing Home Medications Medication Instructions Recorded Confirmed Type albuterol sulfate 90 mcg/actuation 1 inh INHALATION UD PRN 05/09/21 05/09/21 History aerosol inhaler baclofen 10 mg tablet 10 mg PO AMPM 05/09/21 05/09/21 History cholecalciferol (vitamin D3) 125 125 mcg PO DAILY 05/09/21 05/09/21 History mcg (5,000 unit) tablet (Vitamin D3) epinephrine 0.3 mg/0.3 mL 0.3 mg IM UD PRN 05/09/21 05/09/21 History injection, auto-injector (EpiPen) metoprolol succinate 50 mg 50 mg PO DAILY 05/09/21 05/09/21 History tablet,extended release 24 hr multivitamin (Multiple Vitamins) 1 tab PO DAILY 05/09/21 05/09/21 History Patient History Medical History Asthma Dental cavity Hypertension Retinal detachment Seasonal allergies Surgical History History of cholecystectomy Social History Smoking Status: Never smoker Hx Alcohol Use: No Hx Substance Use: No Preferred Language: [place]ese Communication Ability: Effective Bun Panner Required: No Beliefs That Will Affect Care: None Current Living Situation: Alone Current Living Situation Comment: lives by herself. Feels Safe at Home: Yes Assistive Devices: None Review of Systems Constitutional: no fever and no chills Respiratory: no dyspnea Cardiovascular: no chest pain Gastrointestinal: + abdominal pain, + nausea, + vomiting and + constipation Physical Exam Physical Exam: awake,alert Constitutional: well developed and well nourished; no acute distress Respiratory: normal respiratory effort Gastrointestinal (Abdomen): Percussion/Palpation: + abdomen tender (RUQ/epigastric) and abdomen soft Results & Data ([facility]) Vital Signs (Past 12 Hours) Vital Signs Temp Pulse Resp BP BP Pulse Ox 05/10/21 08:06 37.1 C 81 16 151/66 H 96 05/10/21 02:15 37.1 C 77 16 153/90 H 97 05/10/21 01:00 178/103 H 05/10/21 00:59 18 97 05/10/21 00:30 178/106 H 05/10/21 00:29 98 05/10/21 00:01 98 05/10/21 00:00 188/113 H 05/09/21 23:59 97 05/09/21 23:43 183/103 H 98 05/09/21 23:00 172/108 H 97 05/09/21 22:00 173/104 H [address] abd pelvis IV con only CLINICAL HISTORY: severe upper abd pain, elevated lfts, no GB COMPARISON STUDY: 04/25/2017 CT DOSE: 1020.92 mGy.cm TECHNIQUE: Standard CT of the Abdomen and Pelvis was performed with IV contrast. A dose lowering technique was utilized adhering to the principles of ALARA. Contrast Volume: Optiray 320, 90 ml. The patient did not receive oral contrast. FINDINGS: Lung base: The lung bases are clear. Abdominal cavity: There is no evidence for abdominal mass, adenopathy or ascites. Liver: There is homogeneous attenuation of the liver parenchyma. There is no evidence for enhancing mass lesion. Spleen: There is homogeneous attenuation of the splenic parenchyma. There is no enhancing mass lesion. Pancreas: There is homogeneous attenuation of the pancreatic parenchyma. There is no evidence for mass lesion or peripancreatic fluid collection. Gall Bladder: The patient is again status post cholecystectomy. Adrenal glands: The adrenal glands are normal in size and attenuation. There is no evidence for enhancing mass lesion. Kidneys: There is homogeneous attenuation of the renal parenchyma bilaterally. There is no evidence for renal calculus or hydronephrosis. Compared to the previous examination, there are 2 exophytic cystic lesion seen within the right kidney which have increased in size. They currently measure 2.2 and 1.5 cm when compared to 1.5 and 1.0 cm on the previous study. These probably represent hemorrhagic cysts. Follow-up ultrasound is recommended for further evaluation and confirmation. There is also a small exophytic cyst present involving the left kidney measuring 1.3 cm. Again, this most likely represents an hemorrhagic cyst . No other definite enhancing masses are seen bilaterally. Bowel: The bowel loops are normally placed within the abdomen and pelvis without evidence for dilatation or obstruction. There is no evidence for mass lesion. There is mild sigmoid diverticulosis without evidence for diverticulitis. There are no inflammatory changes present. There is no evidence for free air. There is a normal appendix in the right lower quadrant. Bladder: The bladder is within normal limits with no evidence for focal mass, calculus or diverticulum. Mild diffuse thickening of the bladder wall is again seen. : There is no evidence for pelvic mass or adenopathy. There is no evidence for pelvic ascites. Vasculature: There is no evidence for aneurysmal dilatation of the abdominal aorta. Osseous structures: There is no acute osseous pathology. Degenerative changes are present within the lumbar spine. IMPRESSION: 1. No acute intra-abdominal or pelvic abnormality. 2. Interval enlargement of bilateral exophytic cysts of the kidneys, most likely representing hemorrhagic cyst. Follow-up kidney ultrasound is recommended for further evaluation and confirmation. 3. Diverticulosis without evidence for diverticulitis. 4. Additional nonacute findings are delineated above. ACT 112: Positive. There are findings on this exam that require communication b etween the performing entity and the patient following Patient Test Result Information Act ([place] Act 112) guidelines. Electronically signed by: Geovanny Simental M.D. 05/09/2021 7:21 AM US gallbladder LIMITED ABDOMEN CLINICAL HISTORY: RUQ pain, elevated LFTs. COMPARISON: None. TECHNIQUE: Multiple grayscale and color images of the right upper quadrant of the abdomen. FINDINGS: Pancreas: The pancreas is within normal limits with no focal mass or peripancreatic fluid collection identified. Liver: The liver is at the upper limits of normal in size measuring 16.9 cm in the axillary margin. There is mild increase echogenicity present characteristic of fatty infiltration. There is no evidence for a focal mass. There is no intrahepatic biliary duct dilatation. Gallbladder: The patient is status post cholecystectomy. Common Bile Duct: (CBD): It is normal in size measuring 5 mm. Inferior Vena Cava (IVC): The imaged IVC is patent. Right kidney: There is no evidence for hydronephrosis, calculus or gross renal mass. There is a small simple cyst seen involving the lower pole measuring 1.8 cm. No further follow-up is necessary for this benign finding. The kidney is normal in size. IMPRESSION: Liver at the upper limits of normal in size with mild fatty infiltration. ACT 112: Negative or not required by law Electronically signed by: Geovanny Simental M.D. 05/09/2021 9:19 AM MRCP CLINICAL HISTORY: Elevated hepatic transaminases. COMPARISON STUDY: Abdominal CT and abdominal ultrasound performed the same day 05/09/2021. TECHNIQUE: Abdominal MRCP is performed utilizing various T2-weighted sequences in the axial and coronal planes. IV contrast was not administered for this examination. 3-D reformats are created and assessed. The MRCP images are significantly degraded by motion artifact. FINDINGS: The gallbladder is surgically absent. There is no intra or extrahepatic biliary ductal dilatation. The common bile duct measures up to 4 mm. No filling defects are clearly identified to suggest choledocholithiasis. This is suboptimally assessed due to motion artifact. A 9 mm filling defect is suggested within the cystic duct on coronal image #11 and axial image #17. A calcification was seen at this site on today's CT scan. The pancreatic duct is normal in caliber. The liver is enlarged measuring 19.2 cm in length. Steatosis was shown on today's CT scan. The unenhanced liver, pancreas, adrenal glands, and kidneys are otherwise grossly unremarkable. The abdominal aorta is normal in caliber. There is no evidence of bowel obstruction. No ascites is identified. There is no pleural effusion. No destructive bony lesion is seen. IMPRESSION: 1. Significantly motion degraded examination. 2. Status post cholecystectomy. 3. Suspect a 9 mm calculus within a cystic duct remnant. This was also seen on today's CT scan. 4. There is no intra or extrahepatic biliary ductal dilatation, and no convincing evidence of choledocholithiasis. This is suboptimally assessed due to motion. 5. Hepatomegaly and hepatic steatosis. Dictated: 05/09/2021 8:40 PM Transcribed: 05/09/2021 9:04 PM Macie [id number] [email or web address]_Nirmal Electronically signed by: Abdulkadir Cage M.D. 05/09/2021 9:14 PM PG Care Time/CCT Total # of Minutes Spent Total Time Spent with Patient: Total time spent is greater than 50% in coordination of care (as documented) at patient's floor/unit and/or counseling patient: Coding Level of Care Code 73687 Inpt Consult Level 2 Diagnoses Cystic duct calculus K80.20
[2021-05-10] MEDS ORDERED: MAGNESIUM SULFATE / D5W 1 GM/100 ML BAG IV ONE (10:00)
[2021-05-10] MEDS: METOPROLOL SUCC 50MG EXT REL TAB PO SCH (12:03)
[2021-05-10] MEDS ORDERED: KETOROLAC TROMETHAMINE 15 MG/ML VIAL ONE (12:08)
[2021-05-10] MEDS: POTASSIUM CHLORIDE / WTR 10 MEQ/100 ML PLCT IV SCH ×2 (12:26→14:12)
[2021-05-10] MEDS: CHOLECALCIFEROL 5,000 UNITS 125 MCG TAB PO SCH (17:00)
[2021-05-10] MEDS: MULTIVITAMIN TAB PO SCH (17:00)
[2021-05-10] MEDS: BACLOFEN 10 MG TAB PO SCH ×2 (17:00→19:06)
[2021-05-11] MEDS: SODIUM CHLORIDE 0.9% 1000ML 1,000 ML IV SCH ×2 (00:09→13:48)
[2021-05-11 06:26] LABS: Hematocrit (blood only) 39.5 % (37-47); Hemoglobin 13.8 g/dL (12.0-16.0); Mean Corpuscular Hemoglobin 30.4 pg (25-34); Mean Corpuscular Hgb Conc 34.9 g/dL (32-36); Mean Platelet Volume 9.4 fL (7.4-10.4); Platelet Count 372 K/uL (130-400); RDW Coefficient of Variation 14.2 % (11.5-14.5); RDW Standard Deviation 45.5 fL (36.4-46.3); Red Blood Count 4.54 M/uL (4.2-5.4); White Blood Count 7.08 K/uL (4.8-10.8)
[2021-05-11 06:52] LABS: Albumin Level 3.5 gm/dl (3.4-5.0); BUN Creatinine Ratio 13.1 (10-20); Calcium 8.8 mg/dl (8.5-10.1); Creatinine Clr Calc Pharmacy 95.1 ml/min; Est GFR (African American) 99.8 ml/min; Est GFR (Non-African American) 86.1 ml/min; Magnesium 2.4 mg/dl (1.8-2.4); Potassium 3.1 mmol/L (3.5-5.1)
[2021-05-11 06:57] LABS: Albumin Globulin Ratio 0.9 (0.9-2); Bilirubin,Total 1.3 mg/dl (0.2-1); Globulin 3.7 gm/dl (2.5-4.0); Phosphorus 2.1 mg/dl (2.5-4.9); Total Protein 7.2 gm/dl (6.4-8.2)
[2021-05-11] MEDS: METOPROLOL SUCC 50MG EXT REL TAB PO SCH (07:48)
[2021-05-11] MEDS: PIPERACILLIN/TAZOBACTAM 4.5 GM in DEXTROSE 5% 100 ML IV SCH ×3 (07:51→16:05)
[2021-05-11] MEDS ORDERED: POLYETHYLENE (MIRALAX) 17 GM PACK PO PRN (08:16)
[2021-05-11] MEDS ORDERED: POTASSIUM CHLORIDE CRTAB 20 MEQ TABCR PO STA (08:17)
[2021-05-11] MEDS ORDERED: hydrALAZINE HCL 20 MG/ML VIAL IV ONE (08:19)
--- NOTE | 2021-05-11 08:36 | Hospitalist Progress Note ---
Date of Service May 11, 2021 Assessment & Plan (1) Elevated LFTs: (2) History of cholecystectomy: (3) Cystic duct calculus: (4) Bilateral kidney masses: (5) Hypertension: Plan: This is a 50-year-old female who presents with right upper quadrant and epigastric abdominal pain. 1. Right upper quadrant and epigastric pain: Elevated LFTs. Bilirubin initially wnl but now also elevated. Patient reports having abdominal pain, half an hour after eating at [facility] Now persistently nauseous The patient has history of gallstones in the past and is status post cholecystectomy. MRCP obtained shows possible stone in the cystic duct remnant. Acute hepatitis panel ordered, pending GI and general surgery consulted Plan for ERCP on Wednesday Continue Zosyn Supportive care with IV fluids, IV antiemetics, pain medications Monitor LFTs, T bili LFTs, tbili now trending down 2. Renal lesions concerning for malignancy. CT obtained in the ED, for evaluation of abdominal pain, shows renal lesions concerning for malignancy. Urology consulted. The patient has history of renal cyst. Per urology-Would be reasonable to consider an MRI of the kidneys as an outpatient to further characterize the lesions -Alternatively, a biopsy could be considered (as an outpatient) 3. Hypertension: Continue home metoprolol succinate. Added as needed hydralazine Pain likely contributory to elevated blood pressures, manage pain, as above Outpt follow up recommended and discussed with the pt 4. History of asthma: On albuterol p.r.n. and montelukast. No acute issues DVT prophylaxis: SCDs for now. DISPOSITION: Closely monitor in the medical floor. Admission and Anticipated Discharge Date Admission Date: May 09, 2021 Subjective Patient seen in follow-up of elevated LFTs, nausea vomiting Patient reported to the emergency room, after having right upper quadrant pain, which developed about half an hour after eating [facility] Nausea and abd. pain improved LFTs and T bili now decreased MRCP showed possible stone in the cystic duct remnant. Patient has history of cholecystectomy ERCP tomorrow Currently patient denies any fevers, chills, chest pain, shortness of breath Review of Systems Review of Systems: All systems reviewed & are unremarkable except as noted in Subjective Physical Exam Physical Exam: GENERAL: obese F in NAD HEENT: NC/AT, EOMI, Pupils equal, round, and reactive to light. Oral mucosa moist. NECK: No JVD, no masses. CARDIOVASCULAR: S1 and S2 heard. Regular rate and rhythm. No murmur, no gallop. RESPIRATORY: Normal AP diameter. No accessory muscle use. No wheezing, no crackles. ABDOMEN: Right upper quadrant tenderness. No rigidity, no distention. No CVA tenderness. NEURO:Alert and oriented, answers questions appropriately, no facial asymmetry, moves extremities EXTREMITIES: No edema, no erythema. Results & Data Results & Data ([facility]) Vital Signs (Past 12 Hours) Vital Signs Temp Pulse Pulse Resp BP Pulse Ox 05/11/21 07:23 36.6 C 66 16 216/112 H 95 05/10/21 22:55 36.9 C 59 L 18 152/83 H 95 Laboratory Results 05/11/21 05/11/21 Range/Units 05:38 05:38 WBC 7.08 (4.8-10.8) K/uL RBC 4.54 (4.2-5.4) M/uL Hgb 13.8 (12.0-16.0) g/dL Hct 39.5 (37-47) % MCV 87.0 (80-100) fL MCH 30.4 (25-34) pg MCHC 34.9 (32-36) g/dL RDW Std Deviation 45.5 (36.4-46.3) fL RDW Coeff of Dereck 14.2 (11.5-14.5) % Plt Count 372 (130-400) K/uL MPV 9.4 (7.4-10.4) fL Sodium 137 (136-145) mmol/L Potassium 3.1 L (3.5-5.1) mmol/L Chloride 105 (98-107) mmol/L Carbon Dioxide 26 (21-32) mmol/L Anion Gap 6.0 (3-11) BUN 10 (7-18) mg/dl Creatinine 0.79 (0.6-1.2) mg/dl Est Cr Clr Drug Dosing 95.1 ml/min Est GFR ( Amer) 99.8 ml/min Est GFR (Non-Af Amer) 86.1 ml/min BUN/Creatinine Ratio 13.1 (10-20) Glucose 100 H (70-99) mg/dl Calcium 8.8 (8.5-10.1) mg/dl Phosphorus 2.1 L (2.5-4.9) mg/dl Magnesium 2.4 (1.8-2.4) mg/dl Total Bilirubin 1.3 H D (0.2-1) mg/dl AST 209 H (15-37) U/L ALT 814 H (12-78) Alkaline Phosphatase 172 H (45-117) U/L Total Protein 7.2 (6.4-8.2) gm/dl Albumin 3.5 (3.4-5.0) gm/dl Globulin 3.7 (2.5-4.0) gm/dl Albumin/Globulin Ratio 0.9 (0.9-2) Medications Administered Current Inpatient Medications Albuterol (Albuterol Hfa 8 Gm Inhaler) 1 puffs INH DAILY PRN PRN Reason: Shortness Of Breath Or Wheezin Stop: 06/08/21 07:06 Baclofen (Baclofen 10 Mg Tab) 10 mg PO BID [facility] Stop: 06/08/21 08:59 Last Admin: 05/10/21 19:06 Dose: 10 mg Documented by: Docusate Sodium (Docusate Sodium 100 Mg Cap) 100 mg PO BID [facility] Stop: 06/10/21 08:59 Hydralazine HCl (Hydralazine Hcl 20 Mg/Ml Vial) 2.5 mg IV Q4H PRN PRN Reason: SBP> 160 Stop: 06/08/21 08:29 Last Admin: 05/09/21 18:30 Dose: 2.5 mg Documented by: Hydromorphone HCl (Hydromorphone Inj 0.5 Mg/0.5 Ml Syr) 0.5 mg IV Q3H PRN PRN Reason: Pain Stop: 05/23/21 04:36 Last Admin: 05/10/21 02:39 Dose: 0.5 mg Documented by: Sodium Chloride (Nss 1000ml) 1,000 mls @ 80 mls/hr IV .[id number] [facility] Stop: 06/08/21 07:06 Last Admin: 05/11/21 00:09 Dose: 80 mls/hr Documented by: Famotidine 20 mg/ Syringe 5 mls @ 2.5 mls/min IV BID [facility] Stop: 06/08/21 07:59 Last Admin: 05/10/21 19:09 Dose: 2.5 mls/min Documented by: Piperacillin Sod/Tazobactam (Sod 4.5 gm/ Dextrose) 120 mls @ 30 mls/hr IV Q8H [facility] Stop: 05/19/21 07:59 Last Admin: 05/11/21 07:51 Dose: 30 mls/hr Documented by: Promethazine HCl 6.25 mg/ (Sodium Chloride) 50.25 mls @ 201 mls/hr IV Q6H PRN PRN Reason: Nausea And Vomiting Stop: 06/08/21 14:30 Last Infusion: 05/10/21 00:38 Dose: Infused Documented by: Potassium Chloride (K Davonte / Wtr) 10 meq in 100 mls @ 100 mls/hr IV Q1H [facility]; Protocol Stop: 05/11/21 10:44 Metoprolol Succinate (Metoprolol Succ 50mg Ext Rel Tab) 50 mg PO DAILY [facility] Stop: 06/08/21 08:59 Last Admin: 05/11/21 07:48 Dose: 50 mg Documented by: Miscellaneous Information (Piperacill/Tazobac Consult Active) 1 ea N/A UD PRN PRN Reason: Consult Stop: 06/08/21 02:52 Morphine Sulfate (Morphine Sulfate 2 Mg/Ml Carp) 2 mg IV Q4H PRN PRN Reason: Pain Stop: 05/24/21 09:53 Multivitamins (Multivitamin Tab) 1 tab PO QAM [facility] Stop: 06/08/21 08:59 Last Admin: 05/10/21 17:00 Dose: 1 tab Documented by: Ondansetron HCl (Ondansetron Inj 2 Mg/Ml 2 Ml Vial) 4 mg IV Q6H PRN PRN Reason: Nausea Stop: 06/08/21 07:06 Last Admin: 05/10/21 09:02 Dose: 4 mg Documented by: Polyethylene Glycol (Polyethylene (Miralax) 17 Gm Pack) 17 gm PO DAILY PRN PRN Reason: Constipation Stop: 06/10/21 08:15 Potassium Chloride (Potassium Chloride Crtab 20 Meq Tabcr) 40 meq PO PM [facility] Stop: 06/10/21 20:59 Vitamin D (Cholecalciferol 5,000 Units 125 Mcg Tab) 5,000 units PO DAILY [facility] Stop: 06/08/21 08:59 Last Admin: 05/10/21 17:00 Dose: Not Given Documented by:
[2021-05-11] MEDS: FAMOTIDINE 20 MG in SYRINGE 3 ML IV SCH ×2 (09:42→20:22)
[2021-05-11] MEDS: CHOLECALCIFEROL 5,000 UNITS 125 MCG TAB PO SCH (09:42)
[2021-05-11] MEDS: BACLOFEN 10 MG TAB PO SCH ×2 (09:42→20:22)
[2021-05-11] MEDS: DOCUSATE SODIUM 100 MG CAP PO SCH ×2 (09:42→20:22)
[2021-05-11] MEDS: POTASSIUM CHLORIDE / WTR 10 MEQ/100 ML PLCT IV SCH ×2 (09:54→11:22)
[2021-05-11] MEDS ORDERED: POTASSIUM CHLORIDE 20 MEQ/15 ML UDC PO STA (11:56)
[2021-05-11] MEDS: hydrALAZINE HCL 20 MG/ML VIAL IV PRN (14:13)
[2021-05-11] MEDS: MULTIVITAMIN TAB PO SCH (17:33)
[2021-05-11] MEDS: ONDANSETRON INJ 2 MG/ML 2 ML VIAL IV PRN (19:31)
[2021-05-11] MEDS: POTASSIUM CHLORIDE CRTAB 20 MEQ TABCR PO SCH (20:22)
[2021-05-12] MEDS: PIPERACILLIN/TAZOBACTAM 4.5 GM in DEXTROSE 5% 100 ML IV SCH ×3 (00:20→17:26)
[2021-05-12] MEDS: SODIUM CHLORIDE 0.9% 1000ML 1,000 ML IV SCH ×2 (02:08→17:26)
[2021-05-12 06:21] LABS: Hematocrit (blood only) 40.2 % (37-47); Hemoglobin 13.7 g/dL (12.0-16.0); Mean Corpuscular Hgb Conc 34.1 g/dL (32-36); Mean Platelet Volume 8.9 fL (7.4-10.4); Platelet Count 343 K/uL (130-400); RDW Coefficient of Variation 14.1 % (11.5-14.5); RDW Standard Deviation 45.3 fL (36.4-46.3); Red Blood Count 4.57 M/uL (4.2-5.4); White Blood Count 8.78 K/uL (4.8-10.8)
--- NOTE | 2021-05-12 06:53 | Anesthesiology Consultation ---
Date of Service May 12, 2021 Assessment & Plan (1) Encounter for pre-operative examination: Chart Review Chart Review: data entry supervisor initiated History Surgery Operation Date: 05/12/21 09:30 Proposed Procedures p Endoscopic Retrograde Cholangiopancreatogram - Pillo Leyva MD Height/Weight Height: 5 ft 4 in Weight: 98.7 kg Allergies Allergy/AdvReac Type Severity Reaction Status Date / Time bee venom protein (honey bee) Allergy Severe ANAPHYLAXIS Unverified 05/09/21 02:30 wheat Allergy Intermediate gi upset Unverified 05/09/21 02:30 latex Allergy Mild RASH Unverified 05/09/21 02:30 cashew nut Allergy Unknown throat Unverified 05/09/21 02:30 closes marybel Allergy Unknown throat Unverified 05/09/21 02:30 closes pistachio nut Allergy Unknown throat Unverified 05/09/21 02:30 closes UNKNOWN ANTIBIOTIC Allergy Unknown hives & Uncoded 05/09/21 02:30 trouble breathing Medications Home Medications Medication Instructions Recorded Confirmed Last Taken albuterol sulfate 90 mcg/actuation 1 inh INHALATION UD PRN 05/09/21 05/09/21 Unknown aerosol inhaler baclofen 10 mg tablet 10 mg PO AMPM 05/09/21 05/09/21 05/08/21 cholecalciferol (vitamin D3) 125 125 mcg PO DAILY 05/09/21 05/09/21 05/08/21 mcg (5,000 unit) tablet (Vitamin D3) epinephrine 0.3 mg/0.3 mL 0.3 mg IM UD PRN 05/09/21 05/09/21 Unknown injection, auto-injector (EpiPen) metoprolol succinate 50 mg 50 mg PO DAILY 05/09/21 05/09/21 05/08/21 tablet,extended release 24 hr multivitamin (Multiple Vitamins) 1 tab PO DAILY 05/09/21 05/09/21 05/08/21 Active Medications Generic Name Dose Route Start Last Admin Trade Name Freq PRN Reason Stop Dose Admin Baclofen 10 mg 05/09/21 09:00 05/11/21 20:22 Baclofen 10 Mg Tab PO 06/08/21 08:59 10 mg BID KOREY Administration Docusate Sodium 100 mg 05/11/21 09:00 05/11/21 20:22 Docusate Sodium 100 Mg Cap PO 06/10/21 08:59 100 mg BID [facility]Y Administration Hydralazine HCl 2.5 mg 05/09/21 08:30 05/11/21 14:13 Hydralazine Hcl 20 Mg/Ml Vial IV 06/08/21 08:29 2.5 mg Q4H PRN Administration SBP> 160 Hydromorphone HCl 0.5 mg 05/09/21 04:37 05/10/21 02:39 Hydromorphone Inj 0.5 Mg/0.5 Ml Syr IV 05/23/21 04:36 0.5 mg Q3H PRN Administration Pain Sodium Chloride 1,000 mls @ 80 mls/hr 05/09/21 07:07 05/12/21 02:08 Nss 1000ml IV 06/08/21 07:06 80 mls/hr .[id number] K[facility]Y Administration Famotidine 20 mg/ Syringe 5 mls @ 2.5 mls/min 05/09/21 08:00 05/11/21 20:22 IV 06/08/21 07:59 2.5 mls/min BID [facility] Administration Piperacillin Sod/Tazobactam 120 mls @ 30 mls/hr 05/09/21 08:00 05/12/21 04:28 Sod 4.5 gm/ Dextrose IV 05/19/21 07:59 Infused Q8H [facility] Infusion Promethazine HCl 6.25 mg/ 50.25 mls @ 201 mls/hr 05/09/21 14:31 05/10/21 00:38 Sodium Chloride IV 06/08/21 14:30 Infused Q6H PRN Infusion Nausea And Vomiting Metoprolol Succinate 50 mg 05/09/21 09:00 05/11/21 07:48 Metoprolol Succ 50mg Ext Rel Tab PO 06/08/21 08:59 50 mg DAILY [facility] Administration Multivitamins 1 tab 05/09/21 09:00 05/11/21 17:33 Multivitamin Tab PO 06/08/21 08:59 Not Given QAM [facility] Ondansetron HCl 4 mg 05/09/21 07:07 05/11/21 19:31 Ondansetron Inj 2 Mg/Ml 2 Ml Vial IV 06/08/21 07:06 4 mg Q6H PRN Administration Nausea Potassium Chloride 40 meq 05/11/21 21:00 05/11/21 20:22 Potassium Chloride Crtab 20 Meq Tabcr PO 06/10/21 20:59 40 meq PM [facility] Administration Vitamin D 5,000 units 05/09/21 09:00 05/11/21 09:42 Cholecalciferol 5,000 Units 125 Mcg Tab PO 06/08/21 08:59 5,000 units DAILY [facility] Administration Past Medical History Medical History Asthma Dental cavity Hypertension Retinal detachment Seasonal allergies Past Surgical History Surgical History History of cholecystectomy Social History Smoking Status: Never smoker Hx Alcohol Use: No Hx Substance Use: No Physical Exam Vital Signs Last Vital Signs Temp 98.8 F 05/11/21 22:06 Pulse 63 05/11/21 22:06 Resp 18 05/11/21 22:06 BP 161/109 H 05/11/21 22:06 Pulse Ox 94 05/11/21 22:06 Testing Laboratory Results 05/12/21 05:53 PT 9.5 Seconds (9.0-12.0) 05/08/21 23:37 INR 0.9 (0.9-1.1) 05/08/21 23:37 APTT 21.2 Seconds (21.0-31.0) 05/08/21 23:37 Urine Color Yellow 05/08/21 23:08 Urine Appearance Turbid (Clear) A 05/08/21 23:08 Urine pH 8.0 (4.5-7.5) H 05/08/21 23:08 Ur Specific Beatrice 1.018 (1.000-1.030) 05/08/21 23:08 Urine Protein Negative (Negative) 05/08/21 23:08 Urine Glucose (UA) Negative (Negative) 05/08/21 23:08 Urine Ketones Negative (Negative) 05/08/21 23:08 Urine Nitrite Negative (Negative) 05/08/21 23:08 Ur Leukocyte Esterase Negative (Negative) 05/08/21 23:08 Urine WBC (Auto) 0 /hpf (0-5) 05/08/21 23:08 Urine RBC (Auto) 10-30 /hpf (0-4) H 05/08/21 23:08 U Hyaline Cast (Auto) 1-5 /lpf (0-5) 05/08/21 23:08 U Epithel Cells (Auto) 5-10 /lpf (0-5) H 05/08/21 23:08 Urine Bacteria (Auto) Negative (Negative) 05/08/21 23:08
[2021-05-12 07:09] LABS: Albumin Globulin Ratio 0.8 (0.9-2); Albumin Level 3.2 gm/dl (3.4-5.0); BUN Creatinine Ratio 12.8 (10-20); Bilirubin,Total 0.8 mg/dl (0.2-1); Calcium 8.9 mg/dl (8.5-10.1); Creatinine Clr Calc Pharmacy 92.7 ml/min; Est GFR (African American) 96.8 ml/min; Est GFR (Non-African American) 83.5 ml/min; Globulin 3.9 gm/dl (2.5-4.0); Magnesium 2.1 mg/dl (1.8-2.4); Phosphorus 2.6 mg/dl (2.5-4.9); Potassium 3.7 mmol/L (3.5-5.1); Total Protein 7.1 gm/dl (6.4-8.2)
[2021-05-12] MEDS: hydrALAZINE HCL 20 MG/ML VIAL IV PRN (07:50)
[2021-05-12 08:01] LABS: Pregnancy Test, Urine Negative (Negative)
[2021-05-12] MEDS: METOPROLOL SUCC 50MG EXT REL TAB PO SCH (08:15)
[2021-05-12] MEDS: BACLOFEN 10 MG TAB PO SCH ×2 (08:22→22:21)
[2021-05-12] MEDS: FAMOTIDINE 20 MG in SYRINGE 3 ML IV SCH ×2 (08:23→22:21)
[2021-05-12] MEDS: CHOLECALCIFEROL 5,000 UNITS 125 MCG TAB PO SCH (08:48)
[2021-05-12] MEDS: MULTIVITAMIN TAB PO SCH (08:48)
[2021-05-12] MEDS: DOCUSATE SODIUM 100 MG CAP PO SCH ×2 (08:48→22:19)
--- NOTE | 2021-05-12 11:14 | Gastroenterology Progress Note ---
Date of Service May 12, 2021 Assessment & Plan (1) Elevated liver enzymes: Plan: Biliary colic and elevated LFTs post distant cholecystomy and ERCP. Pain persists, worsened by po intake last night. Plan for ERCP today by Dr. Leyva. (2) History of cholecystectomy: (3) Cystic duct calculus: Admission and Anticipated Discharge Date Admission Date: May 09, 2021 Supervising Physician Co-Signing Physician Notes Attending attestation I have seen, examined this patient, and agree with the findings and above by our mid-level provider ALY [place], with the following additions: - biliary colic with intermittent elevated LFTs - Plan for EUS +/- ERCP today for further evaluation Subjective 53, female, post distant cholecystectomy and ERCP for choledocholithiasis. Biliary colic type pain w nausea after eating a [employer] on 05/08. LFTs elevated, though improving today. MRCP showed possible stone in the cystic duct remnant. Patient has history of cholecystectomy Pt had severe pain after attempting clear liquids po last evening and continues with moderate RUQ pain currently. No fevers/chills. Review of Systems Review of Systems: ROS: Gen: Denies weakness, fevers, weight loss Eyes: No eye redness, or pain, no recent vision changes Resp: No SOB, no cough Cardio: No palpitations/irregular beats, no chest pain GI: As per HPI, otherwise (-) : Denies pain on urination Skin: No jaundice, itching or new rashes Physical Exam Constitutional: well developed, + ill appearing, + thin and cooperative Eyes: PERRL, conjunctivae normal, anicteric sclerae Respiratory: normal respiratory effort, lungs clear to auscultation Cardiovascular: RRR, no murmur, no edema Gastrointestinal (Abdomen): Inspection/Auscultation: abdomen normal to inspection and + hyperactive bowel sounds; abdomen not distended Percussion/Palpation: + abdomen tender (diffusely, worse in the RUQ and epigastric area) and abdomen soft Skin: no rashes, warm and dry normal turgor Neurologic: PERRL, EOMI, accommodation nl, no face palsy, no dysarthria awake; not confused Psychiatric: A+Ox3, euthymic affect Orientation: alert, oriented x 3 and cooperative Results & Data ([facility]) Vital Signs (Past 12 Hours) Vital Signs Temp Pulse Resp BP BP Pulse Ox 05/12/21 09:58 164/102 H 05/12/21 08:30 163/102 H 05/12/21 07:39 37.0 C 59 L 16 179/106 H 95 Laboratory Results WBC 8, Hb 13.7, Hct 40, Plts 343, Na 137 K 3.1, Cl 106, CO2 25, BUN 10, Cr 0.81. T Bili 0.8, AST 64, ALT 504, Alk Phos 158. Diagnostic Findings MRCP 05/09/21: 1. Significantly motion degraded examination. 2. Status post cholecystectomy. 3. Suspect a 9 mm calculus within a cystic duct remnant. This was also seen on today's CT scan. 4. There is no intra or extrahepatic biliary ductal dilatation, and no convincing evidence of choledocholithiasis. This is suboptimally assessed due to motion. 5. Hepatomegaly and hepatic steatosis. US 05/09/21: Liver at the upper limits of normal in size with mild fatty infiltration. CT w IV contrast on 05/09/21: No acute intra-abdominal or pelvic abnormality. 2. Interval enlargement of bilateral exophytic cysts of the kidneys, most likely representing hemorrhagic cyst. Follow-up kidney ultrasound is recommended for further evaluation and confirmation. 3. Diverticulosis without evidence for diverticulitis. 4. Additional nonacute findings are delineated above
[2021-05-12] MEDS ORDERED: LIDOCAINE 2% 2 ML VIAL/AMP(20MG/ML) INFIL ONE (13:46)
[2021-05-12] MEDS ORDERED: ONDANSETRON INJ 2 MG/ML 2 ML VIAL ONE (13:46)
[2021-05-12] MEDS ORDERED: SUCCINYLCHOLINE CHLORIDE 20 MG/ML 10 ML VIAL IV ONE (13:46)
[2021-05-12] MEDS ORDERED: ROCURONIUM BROMIDE 10 MG/ML 5 ML VIAL IV ONE (13:47)
[2021-05-12] MEDS ORDERED: fentaNYL citrate 100 MCG/2 ML VIAL ONE (13:47)
[2021-05-12] MEDS ORDERED: PROPOFOL IV EMULSION 10 MG/ML 20 ML VIAL IV ONE (13:47)
[2021-05-12] MEDS ORDERED: ePHEDrine sulfate 50 MG/ML AMP IV PRN (14:49)
[2021-05-12] MEDS ORDERED: HYDROmorphone INJ 2 MG/ML SYR/VIAL IV PRN (14:49)
[2021-05-12] MEDS ORDERED: ATROPINE SULFATE 0.1 MG/ML 10ML SYR IV PRN (14:49)
[2021-05-12] MEDS ORDERED: ONDANSETRON INJ 2 MG/ML 2 ML VIAL IV PRN (14:49)
[2021-05-12] MEDS ORDERED: fentaNYL citrate 100 MCG/2 ML VIAL IV PRN (14:49)
--- NOTE | 2021-05-12 14:53 | History & Physical Bridge Note ---
Date of Service May 12, 2021 History & Physical Bridge Note I have examined the patient, reviewed the History & Physical and in the interval since the performance of the History & Physical I have noted the following changes of clinical significance: no changes noted Plan for EUS/ERCP today Patient was explained in detail regarding risks, benefits, limitations and alternatives of the above endoscopic procedure. Risks of intravenous sedation used for procedure were also explained. Risks include, but not limited to perforation, bleeding, infection, respiratory distress, cardiac arrest and . Patient is also aware about the possibility of missed lesion. Patient's questions were answered. The patient verbalized understanding the information and agreed to undergo the procedure.
--- NOTE | 2021-05-12 14:53 | Anesthesiology Consultation ---
Date of Service May 12, 2021 Assessment & Plan ASA ASA3 Proposed Anesthesia Anesthesia Type: General Risk / Benefits Reviewed With: PT / POA / Parent / Guardian, Accepts Plan and Informed Consent Obtained History Surgery Operation Date: 05/12/21 09:30 Proposed Procedures p Endoscopic Retrograde Cholangiopancreatogram - Pillo Leyva MD Height/Weight Height: 5 ft 4 in Weight: 98.7 kg Allergies Allergy/AdvReac Type Severity Reaction Status Date / Time bee venom protein (honey bee) Allergy Severe ANAPHYLAXIS Unverified 05/09/21 02:30 wheat Allergy Intermediate gi upset Unverified 05/09/21 02:30 latex Allergy Mild RASH Unverified 05/09/21 02:30 cashew nut Allergy Unknown throat Unverified 05/09/21 02:30 closes marybel Allergy Unknown throat Unverified 05/09/21 02:30 closes pistachio nut Allergy Unknown throat Unverified 05/09/21 02:30 closes UNKNOWN ANTIBIOTIC Allergy Unknown hives & Uncoded 05/09/21 02:30 trouble breathing Medications Home Medications Medication Instructions Recorded Confirmed Last Taken albuterol sulfate 90 mcg/actuation 1 inh INHALATION UD PRN 05/09/21 05/09/21 Unknown aerosol inhaler baclofen 10 mg tablet 10 mg PO AMPM 05/09/21 05/09/21 05/08/21 cholecalciferol (vitamin D3) 125 125 mcg PO DAILY 05/09/21 05/09/21 05/08/21 mcg (5,000 unit) tablet (Vitamin D3) epinephrine 0.3 mg/0.3 mL 0.3 mg IM UD PRN 05/09/21 05/09/21 Unknown injection, auto-injector (EpiPen) metoprolol succinate 50 mg 50 mg PO DAILY 05/09/21 05/09/21 05/08/21 tablet,extended release 24 hr multivitamin (Multiple Vitamins) 1 tab PO DAILY 05/09/21 05/09/21 05/08/21 Active Medications Generic Name Dose Route Start Last Admin Trade Name Freq PRN Reason Stop Dose Admin Baclofen 10 mg 05/09/21 09:00 05/12/21 08:22 Baclofen 10 Mg Tab PO 06/08/21 08:59 10 mg BID KOREY Administration Docusate Sodium 100 mg 05/11/21 09:00 05/12/21 08:48 Docusate Sodium 100 Mg Cap PO 06/10/21 08:59 Not Given BID KOREY Hydralazine HCl 2.5 mg 05/09/21 08:30 05/12/21 07:50 Hydralazine Hcl 20 Mg/Ml Vial IV 06/08/21 08:29 2.5 mg Q4H PRN Administration SBP> 160 Hydromorphone HCl 0.5 mg 05/09/21 04:37 05/10/21 02:39 Hydromorphone Inj 0.5 Mg/0.5 Ml Syr IV 05/23/21 04:36 0.5 mg Q3H PRN Administration Pain Sodium Chloride 1,000 mls @ 80 mls/hr 05/09/21 07:07 05/12/21 14:40 Nss 1000ml IV 06/08/21 07:06 Infused .[id number] KOREY Infusion Famotidine 20 mg/ Syringe 5 mls @ 2.5 mls/min 05/09/21 08:00 05/12/21 08:23 IV 06/08/21 07:59 2.5 mls/min BID KOREY Administration Piperacillin Sod/Tazobactam 120 mls @ 30 mls/hr 05/09/21 08:00 05/12/21 12:27 Sod 4.5 gm/ Dextrose IV 05/19/21 07:59 Infused Q8H KOREY Infusion Promethazine HCl 6.25 mg/ 50.25 mls @ 201 mls/hr 05/09/21 14:31 05/10/21 00:38 Sodium Chloride IV 06/08/21 14:30 Infused Q6H PRN Infusion Nausea And Vomiting Metoprolol Succinate 50 mg 05/09/21 09:00 05/12/21 08:15 Metoprolol Succ 50mg Ext Rel Tab PO 06/08/21 08:59 50 mg DAILY KOREY Administration Multivitamins 1 tab 05/09/21 09:00 05/12/21 08:48 Multivitamin Tab PO 06/08/21 08:59 Not Given QAM KOREY Ondansetron HCl 4 mg 05/09/21 07:07 05/11/21 19:31 Ondansetron Inj 2 Mg/Ml 2 Ml Vial IV 06/08/21 07:06 4 mg Q6H PRN Administration Nausea Potassium Chloride 40 meq 05/11/21 21:00 05/11/21 20:22 Potassium Chloride Crtab 20 Meq Tabcr PO 06/10/21 20:59 40 meq PM KOREY Administration Vitamin D 5,000 units 05/09/21 09:00 05/12/21 08:48 Cholecalciferol 5,000 Units 125 Mcg Tab PO 06/08/21 08:59 Not Given DAILY KOREY NPO Date Last Intake of Fluids: 05/12/21 Time Last Intake of Fluids: 00:00 Date Last Intake of Solids: 05/12/21 Time Last Intake of Solids: 00:00 Past Medical History Medical History Asthma Dental cavity Hypertension Retinal detachment Seasonal allergies Exercise / Class Metabolic Activity II 4-5 Yardwork/Stairs/Walk up hill Past Surgical History Surgical History History of cholecystectomy Past Anesthesia History No Hx of Anesthesia Complications and No Family Hx of Anesthesia Complications History of PONV No Hx of PONV and No Hx of Motion Sickness Social History Smoking Status: Never smoker Hx Alcohol Use: No Hx Substance Use: No Review of Systems denies fever/cough/ colds/ chest pain/ SOB/ +SHEILA denies SHEILA Physical Exam Vital Signs Last Vital Signs Temp 37.0 C 05/12/21 07:39 Pulse 59 L 05/12/21 07:39 Resp 16 05/12/21 07:39 BP 164/102 H 05/12/21 09:58 Pulse Ox 95 05/12/21 07:39 ENMT Mouth: no TMJ abnormality and no dentition abnormality Thyromental Distance: > or= 3.5 Finger Breadths Mallampati Class: II Neck neck extension not limited Respiratory normal respiratory effort; no respiratory distress Auscultation: lungs clear to auscultation bilaterally Cardiovascular Rate/Rhythm: regular rate and regular rhythm Neurologic moves all extremities Psychiatric Orientation: alert and oriented x 3 Testing Laboratory Results 05/12/21 05:53 05/12/21 05:53 PT 9.5 Seconds (9.0-12.0) 05/08/21 23:37 INR 0.9 (0.9-1.1) 05/08/21 23:37 APTT 21.2 Seconds (21.0-31.0) 05/08/21 23:37 Urine Color Yellow 05/08/21 23:08 Urine Appearance Turbid (Clear) A 05/08/21 23:08 Urine pH 8.0 (4.5-7.5) H 05/08/21 23:08 Ur Specific [place] 1.018 (1.000-1.030) 05/08/21 23:08 Urine Protein Negative (Negative) 05/08/21 23:08 Urine Glucose (UA) Negative (Negative) 05/08/21 23:08 Urine Ketones Negative (Negative) 05/08/21 23:08 Urine Nitrite Negative (Negative) 05/08/21 23:08 Ur Leukocyte Esterase Negative (Negative) 05/08/21 23:08 Urine WBC (Auto) 0 /hpf (0-5) 05/08/21 23:08 Urine RBC (Auto) 10-30 /hpf (0-4) H 05/08/21 23:08 U Hyaline Cast (Auto) 1-5 /lpf (0-5) 05/08/21 23:08 U Epithel Cells (Auto) 5-10 /lpf (0-5) H 05/08/21 23:08 Urine Bacteria (Auto) Negative (Negative) 05/08/21 23:08 Urine Test Negative (Negative) 05/12/21 07:44 05/12/21 07:44 Urine Test Negative
[2021-05-12] MEDS ORDERED: INDOMETHACIN 50 MG SUPP PR ONE (15:02)
[2021-05-12] MEDS ORDERED: LABETALOL HCL IV 5 MG/ML 20ML IV ONE (15:32)
--- NOTE | 2021-05-12 16:08 | Operative Report ---
Post Operative Report Pre & Post Diagnosis Operation Date: 05/12/21 09:30 Pre-Op Diagnosis: ABDOMINAL PAIN Post-Op Diagnosis: Normal EGD I identified the patient and participated in the time-out.: Yes Procedure Operation Date: 05/12/21 09:30 Actual Procedures p Esophagogastroduodenoscopy - Pillo Leyva MD s Endoscopic Ultrasonography Upper - Pillo Leyva MD Surgeon Pillo Leyav MD [place] Controller None Estimated Blood Loss 0 Findings See Below (Choledocholithiasis removed, stent placed) Specimens None Description of Procedure EUS/ERCP I attest to the content of the Intraoperative Record and any orders documented therein. Any exceptions are noted below.
--- NOTE | 2021-05-12 16:13 | GI REPORT ---
Patient Name: Norah Moreno Procedure Date: 05/12/2021 3:19 PM Date of : 1970 Admit Type: Inpatient Age: 51 Gender: Female Attending MD: Pillo Leyva MD Procedure: Upper GI endoscopy Providers: Pillo Leyva MD Referring MD: Jamila Manrique Do, Carey Kimber Keiter Indications: Abdominal pain Medicines: General Anesthesia Complications: No immediate complications. Estimated Blood Loss: Estimated blood loss: none. Procedure: Pre-Anesthesia Assessment: - Prior to the procedure, a History and Physical was performed, and patient medications, allergies and sensitivities were reviewed. The patient's tolerance of previous anesthesia was reviewed. - The risks and benefits of the procedure and the sedation options and risks were discussed with the patient. All questions were answered and informed consent was obtained. - Patient identification and proposed procedure were verified prior to the procedure by the physician and the nurse. The procedure was verified in the procedure room. - Pre-procedure physical examination revealed no contraindications to sedation. After obtaining informed consent, the endoscope was passed under direct vision. Throughout the procedure, the patient's blood pressure, pulse, and oxygen saturations were monitored continuously. The Endoscope was introduced through the mouth, and advanced to the second part of duodenum. The upper GI endoscopy was accomplished without difficulty. The patient tolerated the procedure well. Findings: The examined esophagus was normal. The entire examined stomach was normal. The duodenal bulb and second portion of the duodenum were normal. Impression: - Normal esophagus. - Normal stomach. - Normal duodenal bulb and second portion of the duodenum. Recommendation: - Perform an upper endoscopic ultrasound (UEUS) today. Pillo Leyva MD 05/12/2021 4:13:29 PM This report has been signed electronically. Note Initiated On: 05/12/2021 3:19 PM Number of Addenda: 0 I attest to the content of the Intraoperative Record and orders documented therein, exceptions below {[id number]}
--- NOTE | 2021-05-12 16:17 | GI REPORT ---
Patient Name: Norah Moreno Procedure Date: 05/12/2021 3:20 PM Date of : 1970 Admit Type: Inpatient Age: 51 Gender: Female Attending MD: Pillo Leyva MD Procedure: Upper EUS Providers: Pillo Leyva MD Referring MD: Jamila Manrique Do, Carey Kimber Keiter Indications: Cystic stump lithiasis on MRCP, Elevated liver enzymes, Suspected choledocholithiasis Medicines: General Anesthesia Complications: No immediate complications. Estimated Blood Loss: Estimated blood loss: none. Procedure: Pre-Anesthesia Assessment: - Prior to the procedure, a History and Physical was performed, and patient medications, allergies and sensitivities were reviewed. The patient's tolerance of previous anesthesia was reviewed. - The risks and benefits of the procedure and the sedation options and risks were discussed with the patient. All questions were answered and informed consent was obtained. - Patient identification and proposed procedure were verified prior to the procedure by the physician and the nurse. The procedure was verified in the procedure room. - Pre-procedure physical examination revealed no contraindications to sedation. After obtaining informed consent, the endoscope was passed under direct vision. Throughout the procedure, the patient's blood pressure, pulse, and oxygen saturations were monitored continuously. The scope was introduced through the mouth, and advanced to the second part of duodenum. The upper EUS was accomplished without difficulty. The patient tolerated the procedure well. Findings: ENDOSONOGRAPHIC FINDING: : There was no sign of significant endosonographic abnormality in the ampulla. No masses were identified. There was no sign of significant endosonographic abnormality in the common bile duct. The maximum diameter of the duct was 4 mm. No stones and no biliary sludge were identified. There was dilation in the common hepatic duct and in the intrahepatic bile duct(s). Two stones were visualized endosonographically in the cystic duct. The stones measured up to 10 mm in greatest dimension. The stones were oval. They were hyperechoic and characterized by shadowing. There was no sign of significant endosonographic abnormality in the visualized portion of the liver. Homogeneous parenchyma was identified. Pancreatic parenchymal abnormalities were noted in the entire pancreas. These consisted of diffuse echogenicity. There was no sign of significant endosonographic abnormality in the visualized portion of the left adrenal gland. There was no sign of significant endosonographic abnormality involving the celiac trunk. Impression: - There was no sign of significant pathology in the ampulla. - There was no sign of significant pathology in the distal common bile duct. There was mild dilation in the common hepatic duct and in the intrahepatic bile duct(s). 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 - There was no evidence of significant pathology in the visualized portion of the liver. - Fatty pancreas. - Endosonographic images of the left adrenal gland were unremarkable. - The celiac trunk was endosonographically normal. Recommendation: - Perform an ERCP today. Pillo Leyva MD 05/12/2021 4:17:27 PM This report has been signed electronically. Note Initiated On: 05/12/2021 3:20 PM Number of Addenda: 0 I attest to the content of the Intraoperative Record and orders documented therein, exceptions below {[id number]}
--- NOTE | 2021-05-12 16:27 | Fluoroscopy Report ---
INTRAOPERATIVE RADIOGRAPHS CLINICAL HISTORY: ERCP. Fluoroscopy time: 4 minutes 9 seconds. FINDINGS: 12 spot fluoroscopic views on the right upper quadrant from an ERCP procedure are presented . Correlation is made with MRCP dated 05/09/2021. The gallbladder is surgically absent. There is smoo th contrast opacification of the common bile duct. There is no intra or extrahepatic biliary ductal d ilatation. The cystic duct appears dilated and a large filling defect in the cystic duct likely repre sents a retained gallstone. Balloon sweeps are performed. The final image shows a stent within the co mmon bile duct. IMPRESSION: Intraoperative ERCP images as above. See operative report for detailed findings. Electronically signed by: Abdulkadir Cage M.D. 05/12/2021 4:26 PM
--- NOTE | 2021-05-12 16:32 | GI REPORT ---
Patient Name: Norah Moreno Procedure Date: 05/12/2021 3:21 PM Date of : 1970 Admit Type: Inpatient Age: 51 Gender: Female Attending MD: Pillo Leyva MD Procedure: ERCP Providers: Pillo Leyva MD Referring MD: Jamila Manrique Do, Carey Kimber Keiter, Brandon M. Craft, MD Indications: For therapy of bile duct stone(s) Medicines: General Anesthesia Complications: No immediate complications. Estimated Blood Loss: Estimated blood loss: none. Procedure: Pre-Anesthesia Assessment: - Prior to the procedure, a History and Physical was performed, and patient medications, allergies and sensitivities were reviewed. The patient's tolerance of previous anesthesia was reviewed. - The risks and benefits of the procedure and the sedation options and risks were discussed with the patient. All questions were answered and informed consent was obtained. - Patient identification and proposed procedure were verified prior to the procedure by the physician and the nurse. The procedure was verified in the procedure room. - Pre-procedure physical examination revealed no contraindications to sedation. After obtaining informed consent, the scope was passed under direct vision. Throughout the procedure, the patient's blood pressure, pulse, and oxygen saturations were monitored continuously. The Duodenoscope was introduced through the mouth, and advanced to the duodenum and used to inject contrast into the bile duct. The ERCP was accomplished without difficulty. The patient tolerated the procedure well. Findings: A material assistant film of the abdomen was obtained. Surgical clips, consistent with a previous cholecystectomy, were seen in the area of the right upper quadrant of the abdomen. The esophagus was successfully intubated under direct vision. The scope was advanced to a normal major papilla in the descending duodenum without detailed examination of the pharynx, larynx and associated structures, and upper GI tract. The upper GI tract was grossly normal. A biliary sphincterotomy had been performed. The sphincterotomy appeared stenosed or narrowed. A 0.025 inch x 270 cm angled Visiglide wire was passed into the biliary tree. The short-nosed traction sphincterotome was passed over the guidewire and the bile duct was then deeply cannulated. Contrast was injected. I personally interpreted the bile duct images. Ductal flow of contrast was adequate. Image quality was adequate. Contrast extended to the main bile duct. Opacification of the entire biliary tree except for the gallbladder was successful. The maximum diameter of the ducts was 6 mm. The cystic duct contained one stone at the take off causing Mirrizi's syndrome, which was 10 mm in diameter. Bile duct orifice was successfully dilated with a 6 mm balloon dilator. To discover objects, the biliary tree was swept with an 8.5 mm balloon starting at the cystic duct stump. A few stones were removed. No stones remained. The biliary tree was swept with an 11.5 mm balloon starting at the bifurcation. Sludge was swept from the duct. One 10 Fr by 9 cm plastic biliary stent with a single external flap and a single internal flap was placed into the common bile duct. Bile flowed through the stent. The stent was in good position. Indomethacin 100 mg was given via suppository to decrease the risk of post-ERCP pancreatitis (PEP). Impression: - Choledocholithiasis was found. Complete removal was accomplished by balloon extraction. - One plastic biliary stent was placed into the common bile duct. Recommendation: - [facility]. - Advance diet as tolerated. - Repeat ERCP in 6 weeks to remove stent. Pillo Leyva MD 05/12/2021 4:31:18 PM This report has been signed electronically. Note Initiated On: 05/12/2021 3:21 PM Number of Addenda: 0 I attest to the content of the Intraoperative Record and orders documented therein, exceptions below {[id number]}
--- NOTE | 2021-05-12 16:42 | Anesthesiology Progress Note ---
Date of Service May 12, 2021 Anesthesia Post Procedure Vital Signs Vital Signs: Temp Pulse Pulse Pulse Resp BP BP 05/12/21 16:35 60 14 145/96 H 05/12/21 16:25 69 18 152/91 H 05/12/21 16:18 97.3 F L 85 18 127/93 05/12/21 14:43 99.0 F 63 18 194/109 H 05/12/21 09:58 164/102 H 05/12/21 08:30 163/102 H 05/12/21 07:39 98.6 F 59 L 16 179/106 H 05/11/21 22:06 98.8 F 63 18 161/109 H Pulse Ox 05/12/21 16:35 96 05/12/21 16:25 97 05/12/21 16:18 94 05/12/21 14:43 97 05/12/21 09:58 05/12/21 08:30 05/12/21 07:39 95 05/11/21 22:06 94 Pain Intensity Right Upper Abdomen: Pain Intensity: 5 Head: Pain Intensity: 3 Transfer of Care Handoff Completed per policy Notes Mental Status: alert / awake / arousable and participated in evaluation Patient Amnestic to Procedure: Yes Nausea / Vomiting: adequately controlled Pain: adequately controlled Airway Patency, RR, SpO2: stable & adequate BP & HR: stable & adequate Hydration State: stable & adequate Anesthetic Complications: no major complications apparent and Pt Satisfied with anesthetic care
[2021-05-12] MEDS: ONDANSETRON INJ 2 MG/ML 2 ML VIAL IV PRN (20:09)
[2021-05-12 20:23] VITALS: O2SAT 96
[2021-05-12] MEDS ORDERED: amLODIPine BESYLATE 5 MG TAB PO SCH (21:00)
--- NOTE | 2021-05-12 22:01 | Hospitalist Progress Note ---
Date of Service May 12, 2021 Assessment & Plan (1) Biliary colic: Plan: Secondary to choledocholithiasis. This has resolved status post and placement after ERCP today. Pain medication as needed. (2) Choledocholithiasis with obstruction: Plan: Causing biliary colic and elevated LFTs. Status post ERCP with stent placement. (3) Elevated LFTs: Plan: 2/2 choledocholithiasis with obstruction. Will likely resolve over the next few days s/p stent placement. Repeat in am. (4) Bilateral kidney masses: Plan: CT obtained in the ED, for evaluation of abdominal pain, shows renal lesions concerning for malignancy. Urology consulted. The patient has history of renal cyst. Per urology-Would be reasonable to consider an MRI of the kidneys as an outpatient to further characterize the lesions -Alternatively, a biopsy could be considered (as an outpatient) (5) Hypertension: Plan: Uncontrolled, on metoprolol per home regimen however notably bradycardic. We will add small dose of Norvasc this evening and discussed a few options with her to bring up with primary care on follow-up (6) DVT prophylaxis: Plan: SCDs/ambulation Full code Disposition-likely to home in a.m. pending clearance by GI team and advancement of diet. Jamila Manriuqe DO [facility] Admission and Anticipated Discharge Date Admission Date: May 09, 2021 Subjective 51-year-old female status post cholecystectomy in the past presents with biliary colic. Recently underwent ERCP found to have choledocholithiasis status post common bile duct stent placement this afternoon. Patient states pain is comp letely resolved and she is somewhat concerned about her blood pressure which is slightly elevated this evening. She is on metoprolol for blood pressure control at home. She also mentioned her left arm peripheral IV infiltrated as Zofran was being pushed. She did have some nausea which is slightly still present but she understands the Zofran is still working and being absorbed. Otherwise denies any shortness of breath or chest pain. Review of Systems Review of Systems: All systems reviewed negative except as indicated above. Physical Exam Physical Exam: CONSTITUTIONAL: WNWD, vitals as above, generally well- appearing, NAD EYES: normal conjunctivae, no scleral icterus ENT: external ear and nose normal, MMM NECK: trachea midline, RESPIRATORY: clear to auscultation bilaterally, no crackles, rales or wheezes, normal respiratory effort CARDIOVASCULAR: regular rate and rhythm, S1 and 2 heard without murmurs, gallops or rubs, no JVD, no peripheral edema, GASTROINTESTINAL: soft, slight tenderness to palpation in RUQ, ND, no guarding MUSCULOSKELETAL: strength 5/5 throughout, head is normocephalic and atraumatic SKIN: warm and dry, NEUROLOGIC: CN 2-12 grossly intact, no sensory deficit, normal cognition, normal speech, no tremor, no gross focal deficits. PSYCHIATRIC: alert cooperative and oriented to person, place and time. Results & Data Results & Data ([facility]) Vital Signs (Past 12 Hours) Vital Signs Temp Pulse Pulse Pulse Resp BP BP 05/12/21 20:22 37.1 C 54 L 16 167/93 H 05/12/21 19:15 37.0 C 55 L 16 171/104 H 05/12/21 18:10 36.5 C 64 16 180/110 H 05/12/21 17:40 37.2 C 58 L 16 164/95 H 05/12/21 17:09 36.8 C 59 L 18 157/100 H 05/12/21 16:55 36.3 C L 56 L 16 157/96 H 05/12/21 16:45 59 L 14 148/94 H 05/12/21 16:35 60 14 145/96 H 05/12/21 16:25 69 18 152/91 H 05/12/21 16:18 36.3 C L 85 18 127/93 05/12/21 14:43 37.2 C 63 18 194/109 H 05/12/21 09:58 164/102 H Pulse Ox 05/12/21 20:22 96 05/12/21 19:15 93 05/12/21 18:10 93 05/12/21 17:40 93 05/12/21 17:09 96 05/12/21 16:55 93 05/12/21 16:45 93 05/12/21 16:35 96 05/12/21 16:25 97 05/12/21 16:18 94 05/12/21 14:43 97 05/12/21 09:58 Laboratory Results Short CBC 05/12/21 Range/Units 05:53 WBC 8.78 (4.8-10.8) K/uL Hgb 13.7 (12.0-16.0) g/dL Hct 40.2 (37-47) % Plt Count 343 (130-400) K/uL BMP 05/12/21 05:53 Sodium 137 Potassium 3.7 D Chloride 106 Carbon Dioxide 25 BUN 10 Creatinine 0.81 Glucose 97 Calcium 8.9 Liver Function 05/12/21 Range/Units 05:53 Total Bilirubin 0.8 D (0.2-1) mg/dl AST 64 H (15-37) U/L ALT 504 H (12-78) Alkaline Phosphatase 158 H (45-117) U/L Albumin 3.2 L (3.4-5.0) gm/dl Diagnostic Findings Endo Retro Cholangiopancreatogram 05/12/21 00:00 INTRAOPERATIVE RADIOGRAPHS CLINICAL HISTORY: ERCP. Fluoroscopy time: 4 minutes 9 seconds. FINDINGS: 12 spot fluoroscopic views on the right upper quadrant from an ERCP procedure are presented. Correlation is made with MRCP dated 05/09/2021. The gallbladder is surgically absent. There is smooth contrast opacification of the common bile duct. There is no intra or extrahepatic biliary ductal dilatation. The cystic duct appears dilated and a large filling defect in the cystic duct likely represents a retained gallstone. Balloon sweeps are performed. The final image shows a stent within the common bile duct. IMPRESSION: Intraoperative ERCP images as above. See operative report for detailed findings. Electronically signed by: Abdulkadir Cage M.D. 05/12/2021 4:26 PM Medications Administered Current Inpatient Medications Albuterol (Albuterol Hfa 8 Gm Inhaler) 1 puffs INH DAILY PRN PRN Reason: Shortness Of Breath Or Wheezin Stop: 06/08/21 07:06 Amlodipine Besylate (Amlodipine Besylate 5 Mg Tab) 5 mg PO HS KOREY Stop: 06/11/21 20:59 Baclofen (Baclofen 10 Mg Tab) 10 mg PO BID KOREY Stop: 06/08/21 08:59 Last Admin: 05/12/21 08:22 Dose: 10 mg Documented by: Docusate Sodium (Docusate Sodium 100 Mg Cap) 100 mg PO BID KOREY Stop: 06/10/21 08:59 Last Admin: 05/12/21 08:48 Dose: Not Given Documented by: Hydralazine HCl (Hydralazine Hcl 20 Mg/Ml Vial) 2.5 mg IV Q4H PRN PRN Reason: SBP> 160 Stop: 06/08/21 08:29 Last Admin: 05/12/21 07:50 Dose: 2.5 mg Documented by: Hydromorphone HCl (Hydromorphone Inj 0.5 Mg/0.5 Ml Syr) 0.5 mg IV Q3H PRN PRN Reason: Pain Stop: 05/23/21 04:36 Last Admin: 05/10/21 02:39 Dose: 0.5 mg Documented by: Sodium Chloride (Nss 1000ml) 1,000 mls @ 80 mls/hr IV .[id number] [facility] Stop: 06/08/21 07:06 Last Admin: 05/12/21 17:26 Dose: 80 mls/hr Documented by: Famotidine 20 mg/ Syringe 5 mls @ 2.5 mls/min IV BID [facility] Stop: 06/08/21 07:59 Last Admin: 05/12/21 08:23 Dose: 2.5 mls/min Documented by: Piperacillin Sod/Tazobactam (Sod 4.5 gm/ Dextrose) 120 mls @ 30 mls/hr IV Q8H [facility] Stop: 05/19/21 07:59 Last Admin: 05/12/21 17:26 Dose: 30 mls/hr Documented by: Promethazine HCl 6.25 mg/ (Sodium Chloride) 50.25 mls @ 201 mls/hr IV Q6H PRN PRN Reason: Nausea And Vomiting Stop: 06/08/21 14:30 Last Infusion: 05/10/21 00:38 Dose: Infused Documented by: Metoprolol Succinate (Metoprolol Succ 50mg Ext Rel Tab) 50 mg PO DAILY [facility] Stop: 06/08/21 08:59 Last Admin: 05/12/21 08:15 Dose: 50 mg Documented by: Miscellaneous Information (Piperacill/Tazobac Consult Active) 1 ea N/A UD PRN PRN Reason: Consult Stop: 06/08/21 02:52 Morphine Sulfate (Morphine Sulfate 2 Mg/Ml Carp) 2 mg IV Q4H PRN PRN Reason: Pain Stop: 05/24/21 09:53 Multivitamins (Multivitamin Tab) 1 tab PO QAM [facility] Stop: 06/08/21 08:59 Last Admin: 05/12/21 08:48 Dose: Not Given Documented by: Ondansetron HCl (Ondansetron Inj 2 Mg/Ml 2 Ml Vial) 4 mg IV Q6H PRN PRN Reason: Nausea Stop: 06/08/21 07:06 Last Admin: 05/12/21 20:09 Dose: 4 mg Documented by: Polyethylene Glycol (Polyethylene (Miralax) 17 Gm Pack) 17 gm PO DAILY PRN PRN Reason: Constipation Stop: 06/10/21 08:15 Potassium Chloride (Potassium Chloride Crtab 20 Meq Tabcr) 40 meq PO PM [facility]Y Stop: 06/10/21 20:59 Last Admin: 05/11/21 20:22 Dose: 40 meq Documented by: Vitamin D (Cholecalciferol 5,000 Units 125 Mcg Tab) 5,000 units PO DAILY [facility] Stop: 06/08/21 08:59 Last Admin: 05/12/21 08:48 Dose: Not Given Documented by:
[2021-05-12] MEDS: POTASSIUM CHLORIDE CRTAB 20 MEQ TABCR PO SCH (22:19)
[2021-05-13] MEDS: PIPERACILLIN/TAZOBACTAM 4.5 GM in DEXTROSE 5% 100 ML IV SCH ×2 (02:05→07:24)
[2021-05-13] MEDS: SODIUM CHLORIDE 0.9% 1000ML 1,000 ML IV SCH (05:20)
[2021-05-13 07:20] VITALS: TEMP 98.4
[2021-05-13] MEDS ORDERED: amLODIPine BESYLATE 5 MG TAB PO ONE (08:46)
[2021-05-13] MEDS: CHOLECALCIFEROL 5,000 UNITS 125 MCG TAB PO SCH (08:47)
[2021-05-13] MEDS: METOPROLOL SUCC 50MG EXT REL TAB PO SCH (08:47)
[2021-05-13] MEDS: MULTIVITAMIN TAB PO SCH (08:47)
[2021-05-13] MEDS: DOCUSATE SODIUM 100 MG CAP PO SCH (08:48)
[2021-05-13] MEDS: FAMOTIDINE 20 MG in SYRINGE 3 ML IV SCH (08:49)
[2021-05-13] MEDS: BACLOFEN 10 MG TAB PO SCH (08:50)
[2021-05-13 09:42] LABS: Anti Nuclear Antibody Screen NEGATIVE (NEGATIVE); Hepatitis A Antibody IgM NON-REACTIVE (NON-REACTIVE); Hepatitis B Core Antibody IgM NON-REACTIVE (NON-REACTIVE)
--- NOTE | 2021-05-13 09:45 | Gastroenterology Progress Note ---
Date of Service May 13, 2021 Assessment & Plan (1) Elevated liver enzymes: (2) History of cholecystectomy: (3) Cystic duct calculus: Plan: Post ERCP day #1, doing well. No clinical evidence of complications. OK for DC from a GI standpoint. Rec: low fat, regular consistency diet. No clear indication for antibiotics on DC (has not had fevers, leukocytosis, chills/sweats and no suggestion of cholangitis during ERCP) . Recheck LFTs in 1-2 wks. Needs repeat ERCP in 6 wks for removal of CBD stent. Our office will contact her to arranged. Admission and Anticipated Discharge Date Admission Date: May 09, 2021 Supervising Physician Co-Signing Physician Notes Attending attestation I have seen, examined this patient, and agree with the findings and above by our mid-level provider ALY [place], with the following additions: - doing well post ERCP - repeat exam for stent removal in 4-6 wks Subjective 51, female admitted with biliary colic. ERCP yesterday with ext of sphincterotomy and extraction of stone from the area of the junction of the cystic duct/CBD. "woke up from the procedure feeling much better. " No pain today. Tolerating a full liquid diet w/o pain or nausea. Review of Systems Review of Systems: ROS: Gen: Denies weakness, fevers, weight loss Eyes: No eye redness, or pain, no recent vision changes Resp: No SOB, no cough Cardio: No palpitations/irregular beats, no chest pain GI: No abdominal pain, no nausea/vomiting : Denies pain on urination Skin: No jaundice, itching or new rashes Physical Exam Constitutional: well developed, well nourished and cooperative Eyes: PERRL, conjunctivae normal, anicteric sclerae Respiratory: normal respiratory effort, lungs clear to auscultation Cardiovascular: RRR, no murmur, no edema Gastrointestinal (Abdomen): Inspection/Auscultation: abdomen normal to inspection and normal bowel sounds; abdomen not distended Percussio n/Palpation: + abdomen tender (minmial epigastric tenderness with deep palpation) and abdomen soft Skin: no rashes, warm and dry normal turgor Neurologic: PERRL, EOMI, accommodation nl, no face palsy, no dysarthria awake; not confused Psychiatric: A+Ox3, euthymic affect Lymphatic: no cervical or axillary lymphadenopathy Results & Data ([facility]) Vital Signs (Past 12 Hours) Vital Signs Temp Pulse Resp BP BP Pulse Ox 05/13/21 07:19 36.9 C 58 L 18 160/96 H 96 05/13/21 02:42 36.6 C 52 L 16 126/78 96 05/12/21 22:29 36.6 C 52 L 16 163/104 H 96 Diagnostic Findings ERCP 05/12/[address] Leyva: - Choledocholithiasis was found. Complete removal was accomplished by balloon extraction. - One plastic biliary stent was placed into the common bile duct.
[2021-05-13 10:46] VITALS: BP 147/91
[2021-05-13 11:17] LABS: Albumin Level 3.2 gm/dl (3.4-5.0); BUN Creatinine Ratio 11.1 (10-20); Calcium 8.9 mg/dl (8.5-10.1); Creatinine Clr Calc Pharmacy 79.9 ml/min; Est GFR (African American) 80.8 ml/min; Est GFR (Non-African American) 69.8 ml/min
[2021-05-13 11:20] LABS: Albumin Globulin Ratio 0.8 (0.9-2); Globulin 3.9 gm/dl (2.5-4.0); Total Protein 7.1 gm/dl (6.4-8.2)
[2021-05-13 11:40] LABS: EBV Nuclear Ag Antibody >600.00 U/mL
--- NOTE | 2021-05-13 11:52 | Discharge Summary ---
Date of Service May 13, 2021 Admission HPI Per Admitting Provider HISTORY OF PRESENT ILLNESS: A 50-year-old female with past medical history significant for prediabetes, hypercholesterolemia, exercise-induced asthma, mild sleep apnea, interstitial lung disease, hypertension, history of cystic duct calculus, acquired renal cyst, endometrial polyp,pruritic disorder, benign hypermobility syndrome, generalized osteoarthritis, migraines, depression, history of retinal detachment, obesity, anxiety. Presents with abdominal pain. The patient started to have right upper quadrant abdominal pain and epigastric pain, severe in nature, has also some nausea from middle of night. She has a history of gallstones and cholecystectomy in the past and todays pain felt similar and she came to the ER. In the ER, after pain medications the pain is better now and her labs showed bilirubin is okay, but AST and ALT are elevated and alkaline phosphatase is mildly elevated. Imaging showed renal lesions. The patient is currently resting comfortably and hemodynamically stable. Denies any headache. No dizziness, no blurred vision, no earache, no runny nose, no sore throat. Appetite was okay before this episode and was swallowing okay and recently gained about 15 pounds in the holidays. Denies any chest pain, no shortness of breath. Normal bowel and bladder movements. No swelling in the legs. Ambulates okay. Admission Exam Per Admitting Provider PHYSICAL EXAMINATION: GENERAL: The patient is obese, not in acute distress. VITAL SIGNS: Temperature 36.4, pulse 97, respiratory rate 16, blood pressure 151/101, oxygen 97% on room air. HEENT: Pupils equal, round, and reactive to light. Oral mucosa moist. NECK: No JVD, no masses. CARDIOVASCULAR: S1 and S2 heard. Regular rate and rhythm. No murmur, no gallop. RESPIRATORY SYSTEM: Normal AP diameter. No accessory muscle use. No wheezing, no crackles. ABDOMEN: Right upper quadrant tenderness and also in epigastrium. mild guarding present. No rigidity, no distention. No CVA tenderness. CENTRAL NERVOUS SYSTEM: Cranial nerves II through XII are grossly intact, nonfocal. EXTREMITIES: No edema, no erythema. Principal Diagnosis Biliary colic Choledocholithiasis with obstructiona Elevated transaminases-improved Bilateral kidney [id number] recommended. Hypertension Discharge Exam CONSTITUTIONAL: WNWD, vitals as above, generally well-appearing, NAD EYES: normal conjunctivae, no scleral icterus ENT: external ear and nose normal, MMM NECK: trachea midline, RESPIRATORY: clear to auscultation bilaterally, no crackles, rales or wheezes, normal respiratory effort CARDIOVASCULAR: regular rate and rhythm, S1 and 2 heard without murmurs, gallops or rubs, no JVD, no peripheral edema, GASTROINTESTINAL: soft, slight tenderness to palpation in RUQ, ND, no guarding MUSCULOSKELETAL: strength 5/5 throughout, head is normocephalic and atraumatic SKIN: warm and dry, NEUROLOGIC: CN 2-12 grossly intact, no sensory deficit, normal cognition, normal speech, no tremor, no gross focal deficits. PSYCHIATRIC: alert cooperative and oriented to person, place and time. Discharge Data Allergies Allergy/AdvReac Type Severity Reaction Status Date / Time bee venom protein (honey bee) Allergy Severe ANAPHYLAXIS Unverified 05/09/21 02:30 wheat Allergy Intermediate gi upset Unverified 05/09/21 02:30 latex Allergy Mild RASH Unverified 05/09/21 02:30 cashew nut Allergy Unknown throat Unverified 05/09/21 02:30 closes marybel Allergy Unknown throat Unverified 05/09/21 02:30 closes pistachio nut Allergy Unknown throat Unverified 05/09/21 02:30 closes UNKNOWN ANTIBIOTIC Allergy Unknown hives & Uncoded 05/09/21 02:30 trouble breathing Consultations 05/09/21 02:52 ED Decision to Admit Stat 05/09/21 08:00 Consult Gastroenterology Routine Consult Urology Routine 05/10/21 07:49 Consult General Surgery Routine Procedures Performed Operation Date: 05/12/21 09:30 Actual Procedures p Esophagogastroduodenoscopy - Pillo Leyva MD s Endoscopic Ultrasonography Upper - Pillo Leyva MD s Endoscopic Retrograde Cholangiopancreato - Pillo Leyva MD Ordered Studies Laboratory Results WBC 8.78 K/uL (4.8-10.8) 05/12/21 05:53 RBC 4.57 M/uL (4.2-5.4) 05/12/21 05:53 Hgb 13.7 g/dL (12.0-16.0) 05/12/21 05:53 Hct 40.2 % (37-47) 05/12/21 05:53 MCV 88.0 fL (80-100) 05/12/21 05:53 MCH 30.0 pg (25-34) 05/12/21 05:53 MCHC 34.1 g/dL (32-36) 05/12/21 05:53 RDW Std Deviation 45.3 fL (36.4-46.3) 05/12/21 05:53 RDW Coeff of Dereck 14.1 % (11.5-14.5) 05/12/21 05:53 Plt Count 343 K/uL (130-400) 05/12/21 05:53 MPV 8.9 fL (7.4-10.4) 05/12/21 05:53 Immature Gran % (Auto) 0.1 % 05/09/21 08:29 Neut % (Auto) 69.8 % 05/09/21 08:29 Lymph % (Auto) 17.6 % 05/09/21 08:29 Levy % (Auto) 10.4 % 05/09/21 08:29 Eos % (Auto) 1.9 % 05/09/21 08:29 Baso % (Auto) 0.2 % 05/09/21 08:29 Neut # (Auto) 5.75 K/uL (1.4-6.5) 05/09/21 08:29 Lymph # (Auto) 1.45 K/uL (1.2-3.4) 05/09/21 08:29 Levy # (Auto) 0.86 K/uL (0.11-0.59) H 05/09/21 08:29 Eos # (Auto) 0.16 K/uL (0-0.5) 05/09/21 08:29 Baso # (Auto) 0.02 K/uL (0-0.2) 05/09/21 08:29 Immature Gran # (Auto) 0.01 K/uL (0.00-0.02) 05/09/21 08:29 PT 9.5 Seconds (9.0-12.0) 05/08/21 23:37 INR 0.9 (0.9-1.1) 05/08/21 23:37 APTT 21.2 Seconds (21.0-31.0) 05/08/21 23:37 PTT Ratio 0.8 05/08/21 23:37 Sodium 137 mmol/L (136-145) 05/13/21 10:32 Potassium 4.0 mmol/L (3.5-5.1) 05/13/21 10:32 Chloride 108 mmol/L (98-107) H 05/13/21 10:32 Carbon Dioxide 26 mmol/L (21-32) 05/13/21 10:32 Anion Gap 4.0 (3-11) 05/13/21 10:32 BUN 10 mg/dl (7-18) 05/13/21 10:32 Creatinine 0.94 mg/dl (0.6-1.2) 05/13/21 10:32 Est Cr Clr Drug Dosing 79.9 ml/min 05/13/21 10:32 Est GFR ( Amer) 80.8 ml/min 05/13/21 10:32 Est GFR (Non-Af Amer) 69.8 ml/min 05/13/21 10:32 BUN/Creatinine Ratio 11.1 (10-20) 05/13/21 10:32 Glucose 148 mg/dl (70-99) H 05/13/21 10:32 Calcium 8.9 mg/dl (8.5-10.1) 05/13/21 10:32 Phosphorus 2.6 mg/dl (2.5-4.9) 05/12/21 05:53 Magnesium 2.1 mg/dl (1.8-2.4) 05/12/21 05:53 Total Bilirubin 0.8 mg/dl (0.2-1) D 05/12/21 05:53 Direct Bilirubin 1.6 mg/dl (0-0.2) H 05/09/21 08:29 AST 35 U/L (15-37) 05/13/21 10:32 ALT 350 (12-78) H 05/13/21 10:32 Alkaline Phosphatase 142 U/L (45-117) H 05/13/21 10:32 Total Creatine Kinase 122 U/L (26-192) 05/09/21 13:17 Total Protein 7.1 gm/dl (6.4-8.2) 05/13/21 10:32 Albumin 3.2 gm/dl (3.4-5.0) L 05/13/21 10:32 Globulin 3.9 gm/dl (2.5-4.0) 05/13/21 10:32 Albumin/Globulin Ratio 0.8 (0.9-2) L 05/13/21 10:32 Amylase 54 U/L (25-115) 05/08/21 23:37 Lipase 129 U/L (73-393) 05/08/21 23:37 Urine Color Yellow 05/08/21 23:08 Urine Appearance Turbid (Clear) A 05/08/21 23:08 Urine pH 8.0 (4.5-7.5) H 05/08/21 23:08 Ur Specific [place] 1.018 (1.000-1.030) 05/08/21 23:08 Urine Protein Negative (Negative) 05/08/21 23:08 Urine Glucose (UA) Negative (Negative) 05/08/21 23:08 Urine Ketones Negative (Negative) 05/08/21 23:08 Urine Blood 1+ (Negative) H 05/08/21 23:08 Urine Nitrite Negative (Negative) 05/08/21 23:08 Urine Bilirubin Negative (Negative) 05/08/21 23:08 Urine Urobilinogen Negative (Negative) 05/08/21 23:08 Ur Leukocyte Esterase Negative (Negative) 05/08/21 23:08 Urine WBC (Auto) 0 /hpf (0-5) 05/08/21 23:08 Urine RBC (Auto) 10-30 /hpf (0-4) H 05/08/21 23:08 U Hyaline Cast (Auto) 1-5 /lpf (0-5) 05/08/21 23:08 U Epithel Cells (Auto) 5-10 /lpf (0-5) H 05/08/21 23:08 Urine Bacteria (Auto) Negative (Negative) 05/08/21 23:08 Urine Test Negative (Negative) 05/12/21 07:44 ABNER Screen NEGATIVE (NEGATIVE) 05/09/21 13:17 EBV Capsid Ag IgG Ab 399.00 U/mL H 05/09/21 20:52 EBV Capsid Ag IgM Ab <36.00 U/mL 05/09/21 20:52 EBV Nuclear Antigen Ab >600.00 U/mL H 05/09/21 20:52 EBV Antibody Interp SEE NOTE 05/09/21 20:52 Hepatitis A IgM Ab NON-REACTIVE (NON-REACTIVE) 05/09/21 13:17 Hep Bs Antigen Neg (Neg) 05/09/21 13:17 Hep B Core IgM Ab NON-REACTIVE (NON-REACTIVE) 05/09/21 13:17 Hepatitis C Antibody Neg (Neg) 05/09/21 13:17 SARS-CoV-2, RNA, NAAT NEGATIVE (NEGATIVE) 05/09/21 03:20 Impressions Abdomen/Pelvis CT 05/09/21 00:51 CT abd pelvis IV con only CLINICAL HISTORY: severe upper abd pain, elevated lfts, no GB COMPARISON STUDY: 04/25/2017 CT DOSE: 1020.92 mGy.cm TECHNIQUE: Standard CT of the Abdomen and Pelvis was performed with IV contrast. A dose lowering technique was utilized adhering to the principles of ALARA. Contrast Volume: Optiray 320, 90 ml. The patient did not receive oral contrast. FINDINGS: Lung base: The lung bases are clear. Abdominal cavity: There is no evidence for abdominal mass, adenopathy or ascites. Liver: There is homogeneous attenuation of the liver parenchyma. There is no evidence for enhancing mass lesion. Spleen: There is homogeneous attenuation of the splenic parenchyma. There is no enhancing mass lesion. Pancreas: There is homogeneous attenuation of the pancreatic parenchyma. There is no evidence for mass lesion or peripancreatic fluid collection. Gall Bladder: The patient is again status post cholecystectomy. Adrenal glands: The adrenal glands are normal in size and attenuation. There is no evidence for enhancing mass lesion. Kidneys: There is homogeneous attenuation of the renal parenchyma bilaterally. There is no evidence for renal calculus or hydronephrosis. Compared to the previous examination, there are 2 exophytic cystic lesion seen within the right kidney which have increased in size. They currently measure 2.2 and 1.5 cm when compared to 1.5 and 1.0 cm on the previous study. These probably represent hemorrhagic cysts. Follow-up ultrasound is recommended for further evaluation and confirmation. There is also a small exophytic cyst present involving the left kidney measuring 1.3 cm. Again, this most likely represents an hemorrhagic cyst . No other definite enhancing masses are seen bilaterally. Bowel: The bowel loops are normally placed within the abdomen and pelvis without evidence for dilatation or obstruction. There is no evidence for mass lesion. There is mild sigmoid diverticulosis without evidence for diverticulitis. There are no inflammatory changes present. There is no evidence for free air. There is a normal appendix in the right lower quadrant. Bladder: The bladder is within normal limits with no evidence for focal mass, calculus or diverticulum. Mild diffuse thickening of the bladder wall is again seen. : There is no evidence for pelvic mass or adenopathy. There is no evidence for pelvic ascites. Vasculature: There is no evidence for aneurysmal dilatation of the abdominal aorta. Osseous structures: There is no acute osseous pathology. Degenerative changes are present within the lumbar spine. IMPRESSION: 1. No acute intra-abdominal or pelvic abnormality. 2. Interval enlargement of bilateral exophytic cysts of the kidneys, most likely representing hemorrhagic cyst. Follow-up kidney ultrasound is recommended for further evaluation and confirmation. 3. Diverticulosis without evidence for diverticulitis. 4. Additional nonacute findings are delineated above. ACT 112: Positive. There are findings on this exam that require communication between the performing entity and the patient following Patient Test Result Information Act ([place] Act 112) guidelines. Electronically signed by: Geovanny Simental M.D. 05/09/2021 7:21 AM Gallbladder Ultrasound 05/09/21 07:07 US gallbladder LIMITED ABDOMEN CLINICAL HISTORY: RUQ pain, elevated LFTs. COMPARISON: None. TECHNIQUE: Multiple grayscale and color images of the right upper quadrant of the abdomen. FINDINGS: Pancreas: The pancreas is within normal limits with no focal mass or peripancreatic fluid collection identified. Liver: The liver is at the upper limits of normal in size measuring 16.9 cm in the axillary margin. There is mild increase echogenicity present characteristic of fatty infiltration. There is no evidence for a focal mass. There is no intrahepatic biliary duct dilatation. Gallbladder: The patient is status post cholecystectomy. Common Bile Duct: (CBD): It is normal in size measuring 5 mm. Inferior Vena Cava (IVC): The imaged IVC is patent. Right kidney: There is no evidence for hydronephrosis, calculus or gross renal mass. There is a small simple cyst seen involving the lower pole measuring 1.8 cm. No further follow-up is necessary for this benign finding. The kidney is normal in size. IMPRESSION: Liver at the upper limits of normal in size with mild fatty infiltration. ACT 112: Negative or not required by law. Electronically signed by: Geovanny Simental M.D. 05/09/2021 9:19 AM Renal Ultrasound 05/09/21 08:30 RENAL ULTRASOUND HISTORY: Follow-up renal masses. Abnormal CT. COMPARISON: Abdomen and pelvis CT 05/09/2021. FINDINGS: Right kidney: 12.0 cm. There is a 1.8 cm hypoechoic exophytic lesion within the lower pole. This corresponds to the abnormality on the prior CT examination. This appears to demonstrate internal echoes and therefore does not represent a simple cyst. No hydronephrosis. Normal corticomedullary differentiation and cortical thickness. Left kidney: 11.5 cm. There is a 1.1 cm hypoechoic lesion within the lower pole corresponding to the prior CT abnormality. This appears to demonstrate internal echoes and therefore does not represent a simple cyst. No hydronephrosis. Normal corticomedullary differentiation and cortical thickness. Bladder: No bladder wall thickening. The bilateral ureteral jets were identified. IMPRESSION: Bilateral renal lesions as described above concerning for solid renal masses. Therefore, renal cell carcinomas remaining the diagnosis of exclusion. Follow-up dedicated renal MRI is recommended for further evaluation. ACT 112: Positive. There are findings on this exam that require communication between the performing entity and the patient following Patient Test Result Information Act ([place] Act 112) guidelines. Electronically signed by: North Romano M.D. 05/09/2021 9:42 AM Cholangiopancreatography MRI 05/09/21 18:36 MRCP CLINICAL HISTORY: Elevated hepatic transaminases. COMPARISON STUDY: Abdominal CT and abdominal ultrasound performed the same day 05/09/2021. TECHNIQUE: Abdominal MRCP is performed utilizing various T2-weighted sequences in the axial and coronal planes. IV contrast was not administered for this examination. 3-D reformats are created and assessed. The MRCP images are significantly degraded by motion artifact. FINDINGS: The gallbladder is surgically absent. There is no intra or extrahepatic biliary ductal dilatation. The common bile duct measures up to 4 mm. No filling defects are clearly identified to suggest choledocholithiasis. This is suboptimally assessed due to motion artifact. A 9 mm filling defect is suggested within the cystic duct on coronal image #11 and axial image #17. A calcification was seen at this site on today's CT scan. The pancreatic duct is normal in caliber. The liver is enlarged measuring 19.2 cm in length. Steatosis was shown on today's CT scan. The unenhanced liver, pancreas, adrenal glands, and kidneys are otherwise grossly unremarkable. The abdominal aorta is normal in caliber. There is no evidence of bowel obstruction. No ascites is identified. There is no pleural effusion. No destructive bony lesion is seen. IMPRESSION: 1. Significantly motion degraded examination. 2. Status post cholecystectomy. 3. Suspect a 9 mm calculus within a cystic duct remnant. This was also seen on today's CT scan. 4. There is no intra or extrahepatic biliary ductal dilatation, and no convincing evidence of choledocholithiasis. This is suboptimally assessed due to motion. 5. Hepatomegaly and hepatic steatosis. Dictated: 05/09/2021 8:40 PM Transcribed: 05/09/2021 9:04 PM [facility] [id number] Electronically signed by: Abdulkadir Cage M.D. 05/09/2021 9:14 PM Hospital Course (1) Biliary colic: Secondary to choledocholithiasis. This has resolved status post and placement after ERCP performed on 05/12/21. She received Zosyn fro admission on 05/09 throughout her stay and no antibiotics were continued as she was without fevers, leukocytosis or evidence of ascending cholangitis on ERCP. (2) Choledocholithiasis with obstruction: Causing biliary colic and elevated LFTs. Status post ERCP with stent placement on 05/12. Requires followup in 6 weeks for removal of stent ([facility]). LFTs were trending down at time of discharge but should be repeated to ensure complete normalization as outpatient (3) Elevated LFTs: plan as above. (4) Bilateral kidney masses: CT a/p reveals what looked like cysts in R kidney. Further investigation with a renal US revealed these are solid renal lesions. Further investigation with a dedicated renal MRI recommended +/- Urology consultation as outpatient. (5) Hypertension: Uncontrolled, on metoprolol per home regimen however notably bradycardic. Small dose of Norvasc added with success which was continued at discharge. May need to wean down on her metoprolol 2/2 resting sinus bradycardia. At time of discharge she was hemodynamically stable and afebrile and tolerating PO. She was sent home in stable condition with close primary care followup recommended. Total Time Total Time Spent Total Time Spent (In Minutes): 60 Discharge Plan Discharge Items Patient Disposition: Home - Self-Care Reason For Visit: ABDOMINAL PAIN Discharge Diagnosis: Biliary colic Choledocholithiasis with obstructiona Elevated transaminases-improved Bilateral kidney [id number] recommended. Hypertension Condition on Discharge: Good Activity: Resume your previous activity Non-emergency contact: Primary Care Provider Call non-emergency contact if: you have any medication questions, your symptoms worsen, your pain is not controlled and you have a fever Follow-up/Referrals: Starla Souza DO [Primary Care Provider] - (Date & Time 05/20/2021 11:00 AM Provider Starla Souza DO Department [facility] ) Diet: Regular Addtl Attending Provider Instructions: Please take all medications as instructed on discharge as below. You have been placed on a low-dose blood pressure medicine called amlodipine (Norvasc) to take daily. Please follow-up with your primary care doctor within 1 week of discharge for repeat blood pressure check and follow-up of liver enzymes on blood work. These should be improving after common bile duct stent placement here in the hospital. Additionally, further investigation of your bilateral kidney masses should be entertained at this time. There are 2 growths in the right kidney measuring 2.2cm and 1.5 cm that are increased from prior studies. Hemorrhagic cysts are in the differential however after renal ultrasound these were more concerning for solid renal masses. Renal cell carcinoma remains in the differential diagnosis. This is a type of kidney cancer and a dedicated renal MRI may help to further evaluate this issue. Follow-up with urology may be considered by primary care. It is recommended that you follow-up with [facility] in 6 weeks for removal of the common bile duct stone. Their office should be contacting you with the date and time for this. It was a pleasure taking care of you! Please call if you have any questions or problems. You can reach a [facility] hospitalist on duty at [facility] 24 hours a day by calling [phone]. Take care of yourself. Jamila Manrique DO [facility] Hospitalist Pending Studies at Discharge: No Stand-Alone Forms: My [facility] Medications and DC Order Prescriptions: New amlodipine [Norvasc] 5 mg Tablet 5 mg PO DAILY Qty: 30 RF: 0 Continued multivitamin [Multiple Vitamins] Tablet 1 tab PO DAILY RF: 0 metoprolol succinate 50 mg tablet extended release 24 hr 50 mg PO DAILY RF: 0 baclofen 10 mg tablet 10 mg PO AMPM RF: 0 epinephrine [EpiPen] 0.3 mg/0.3 mL Auto-Injector 0.3 mg IM UD PRN (Reason: Allergic Reaction) RF: 0 albuterol sulfate 90 mcg/actuation Hfa Aerosol Inhaler 1 inh INHALATION UD PRN (Reason: Shortness Of Breath Or Wheezing) RF: 0 cholecalciferol (vitamin D3) [Vitamin D3] 125 mcg (5,000 unit) Tablet 125 mcg PO DAILY RF: 0 Discharge Orders: Discharge Order (Routine); Ordered 05/13/21 Ordered By: Jamila Manrique Admission Data Admit Date/Time: 05/09/21 04:37 Attending Provider: Jamlia Manrique Admit Provider: Radu Macias Primary Care Provider: Starla Souza Other Providers: Jamila Manrique ; Radu Macias ; Shawn Clayton ; Otoniel Pizarro ; Dat Heath ; Carlitos Toribio ; Alejandra Paniagua ; Patrice Caraballo ; Debbi Torres ; Janessa Glez ; Lindsey Man ; Cristo San ; Maximiliano Marcus ; Kathy Bullock ; Patricia Man ; Yang Vigil ; Francisco Mcfarlane
[2021-05-13 12:28] VITALS: PULSE 56
[2021-05-13 22:45] LABS: Bilirubin,Total 0.6 mg/dl (0.2-1)
[2021-05-14 18:21] LABS: CMV DNA Qnt Real Time PCR Not Detected; CMV DNA Quant PCR Not Detected log IU/mL
== END 2021-05-13 12:57 | disposition home or self-care (01) | DRG 446 ==
LOC: ED 22:51 → SUATTDRO 05-09 04:37 → EDINP 05-09 04:37 → 3W 05-09 07:06